=== PATIENT | female | born 1980 | race Caucasian/White ===

== ENCOUNTER 2020-01-02 13:27 | Emergency (ER) | payer OTHER, SELFPAY ==
--- NOTE | ~2020-01-02 | XR_ITS ---
EXAMINATION: XR elbow LT min 3V EXAM DATE: 01/02/2020 13:55 INDICATION: No known recent injury provided at this time. Pain of the left elbow. TECHNIQUE: Left elbow frontal, lateral with flexion, and oblique projections obtained and reviewed. There is no prior study for comparison. FINDINGS: Left elbow anterior humeral line intact. There are no acute fractures or dislocations yissel ntified. There is no subcutaneous gas. The soft tissue is unremarkable. There are no radiopaque f oreign bodies. Joint space is maintained. IMPRESSION: 1. Unremarkable XR elbow LT min 3V exam. Reviewed, dictated and finalized at location A. [employer]
[2020-01-02 13:30] VITALS: BP 155/91; PULSE 71; RESP 16; TEMP 36.9; O2SAT 100
--- NOTE | 2020-01-02 15:18 | ED.UPPEXIN ---
HPI - Extremity Injury (Upper) General Chief Complaint: Extremity Injury, Upper Stated Complaint: left elbow feels hot Time Seen by Provider: 01/02/20 14:43 Source: patient Mode of arrival: ambulatory Limitations: no limitations History of Present Illness HPI narrative: Patient presents with chief complaint of pain with occasional radiation to the fingers from the left elbow that began after patient was throwing a pallet into a dumpster prior to arrival at work. 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 Patient denies any other injuries or prior fractures. Patient states that the pain has persisted in the left elbow. Related Data Allergies Allergy/AdvReac Type Severity Reaction Status Date / Time No Known Allergies Allergy Verified 01/02/20 13:34 Review of Systems Review of Systems: Narrative: CONSTITUTIONAL: Denies fever, chills, or sweats. EYES: Denies visual changes, redness, or discharge. ENT: Denies rhinorrhea, congestion, sore throat, or otalgia. CARDIOVASCULAR: Denies chest pain, palpitations, or edema. RESPIRATORY: Denies cough or dyspnea. GASTROINTESTINAL: Denies abdominal pain, nausea, vomiting, or diarrhea. GENITOURINARY: Denies dysuria or hematuria. SKIN: Denies rash or itching. MUSCULOSKELETAL: Reports elbow pain denies back pain, or myalgia. NEUROLOGIC: Reports intermittent hand tingling denies headache, dizziness, or weakness. PSYCHIATRIC: Denies anxiety or depression. PMFSH Social History Social History Gender identity (if verbalized by the patient): Female Exam Narrative: Exam Narrative: GENERAL: Well-appearing, well-nourished, and in no acute distress. HEAD: Normocephalic, atraumatic. EYES: PERRLA and EOMI. ENT: Nares clear, no rhinorrhea or epistaxis. Mucous membranes moist. Oropharynx without tonsillar hypertrophy exudate or other lesions. Bilateral TMs pearly garrett nonbulging NECK: Supple. No adenopathy or masses. No carotid bruits or JVD CHEST: Clear to auscultation. No respiratory distress. No wheezes rales or rhonchi HEART: Regular rate and rhythm. No murmur heard. Normal peripheral pulses. EXTREMITIES: Tenderness with palpation of the left elbow ulnar groove. Exchange Teller strength, sensation are normal in bilateral arms. Normal range of motion. No edema. No erythema, ecchymosis or signs of swelling. Tinel's negative SKIN: Warm, dry, no rash. NEURO: No focal deficits. Alert and oriented x3. PSYCH: Normal mood and affect. Course Vital Signs Vital signs: Vital Signs Temperature 98.4 F 01/02/20 13:30 Pulse Rate 71 01/02/20 13:30 Respiratory Rate 16 01/02/20 13:30 Blood Pressure 155/91 H 01/02/20 13:30 Pulse Oximetry 100 01/02/20 13:30 Temperature 98.4 F 01/02/20 13:30 Pulse Rate 71 01/02/20 13:30 Respiratory Rate 16 01/02/20 13:30 Blood Pressure 155/91 H 01/02/20 13:30 Pulse Oximetry 100 01/02/20 13:30 MDM - Extremity Injury (Upper) MDM Narrative Medical decision making narrative: Discussed with patient ulnar nerve irritation and plans for anti-inflammatory medication and avoiding overuse. Patient asked questions on whether or not her symptoms could be linked to stroke or carpal tunnel. Patient is not showing any signs of stroke-speech issues, neurological deficits, Unilateral changes. Patient also have a negative Tinel's test and the distribution of tingling to the fingers pointing to the ulnar nerve irritation. Patient given discharge instructions and instructed to follow with her primary care for further evaluation symptoms persist. Patient informed that if symptoms persist she may require MRI or nerve conduction studies. Patient instructed to return to emergency department if she has any worsening or emergent symptoms. Patient instructed to report her injury to her job so they may be aware if any further
== END 2020-01-02 16:28 | disposition home or self-care (01) ==
PROVIDERS: Emergency Provider Emergency Medicine
DX: S54.02XA Injury of ulnar nerve at forearm level, left arm, initial encounter (principal); X50.9XXA Other and unspecified overexertion or strenuous movements or postures, initial encounter
CPT/HCPCS: 73080; 99283

== ENCOUNTER 2022-05-17 18:15 | Emergency (ER) | payer OTHER, SELFPAY ==
--- NOTE | ~2022-05-17 | XR_ITS ---
EXAMINATION: XR chest 2V Exam Date/Time: 05/17/2022 18:45 CDT HISTORY: cough, diminished lung sounds HX covid 1 yr ago Comparison: None available. RESULT: Lines, tubes, and devices: None. Lungs and pleura: Clear. Cardiomediastinal silhouette: Normal cardiomediastinal silhouette. Other: No acute osseous or upper abdominal finding. IMPRESSION: No acute cardiopulmonary process. Reviewed, dictated and finalized at location K.
[2022-05-17 18:22] VITALS: BP 148/81; PULSE 79; RESP 16; TEMP 37.1; O2SAT 99
--- NOTE | 2022-05-17 18:26 | ED.URI ---
HPI - URI/Sore Throat General Chief Complaint: Upper Respiratory Infection Stated Complaint: Chest Congestion/Cough Time Seen by Provider: 05/17/22 18:20 Source: patient and RN notes reviewed History of Present Illness HPI Narrative: Patient is a 42-year-old female who presents the urgent care with complaints of persistent cough, chest congestion and intermittent chest discomfort with cough. Patient states that it all seems to be raspy. Also reports of a runny nose. Patient states that her doctor would not see her and stated that she needed to go to the emergency room. Patient states that she did go to the emergency room in February and they did not do anything for her and attributed her symptoms to anxiety. Patient states she has had a lot of stress and anxiety since COVID after her mother from the same COVID diagnosis. Patient states that she is now taking care of her cousin who has MR. Patient denies of any fevers, nausea, vomiting, new exposures to illness. No other complaints. No acute distress noted. Patient aware of the plan of care. Some parts of this dictation were generated by voice recognition software and may contain typographical and/or grammatical inaccuracies. Related Data Home Medications Medication Instructions Recorded Confirmed travoprost 0.004 % eye drops 1 drp EACH EYE DAILY 05/17/22 05/17/22 Allergies Allergy/AdvReac Type Severity Reaction Status Date / Time No Known Allergies Allergy Verified 05/17/22 18:44 Review of Systems Review of Systems: CONSTITUTIONAL: Denies fever, chills, or sweats. EYES: Denies visual changes, redness, or discharge. ENT: Denies rhinorrhea, congestion, sore throat, or otalgia. CARDIOVASCULAR: Denies chest pain, palpitations, or edema. RESPIRATORY: Reports of persistent cough with intermittent dyspnea and chest discomfort GASTROINTESTINAL: Denies abdominal pain, nausea, vomiting, or diarrhea. GENITOURINARY: Denies dysuria or hematuria. SKIN: Denies rash or itching. MUSCULOSKELETAL: Denies back pain, joint pain, or myalgia. NEUROLOGIC: Denies headache, numbness, or weakness. All other systems reviewed are negative, except as documented in HPI. [facility] Social History Social History (System 05/22/20 @ 12:07 by Misty Hennessy) Gender identity (if verbalized by the patient): Female Comments At the time of my signature, I reviewed and agree with the nursing past medical, surgical, social, and family history. There is no relevant family history pertinent to the patient complaint. Exam Narrative: GENERAL: This is a well-nourished, well-developed patient, in no apparent distress. HEAD: normocephalic, atraumatic. EYES: PERRL. Sclera clear/white. Vision is grossly intact. EARS: External ears normal, auditory canals clear and without drainage, TMs normal without perforation. Hearing grossly intact. NOSE: External nose normal with no obvious nasal discharge, nares without redness, no rhinorrhea. THROAT: Mucous membranes moist, posterior pharynx clear. Mild postnasal drainage NECK: Neck supple, non-tender without lymphadenopathy, masses or thyromegaly. CARDIOVASCULAR: Regular rate and rhythm without murmurs, gallops, or rubs. RESPIRATORY: Diminished throughout with the exception of the left upper lobe. No crackles or wheezes SKIN: warm, intact with no suspicious lesions or rash, good texture and turgor. NEURO: awake, alert, and oriented to person, place and time. There were no obvious focal neurologic abnormalities. EXTREMITIES: No clubbing, cyanosis, or edema. Course Course Level of Care: Express Care Visit Vital Signs Vital signs: Vital Signs Temperature 98.7 F 05/17/22 18:22 Pulse Rate 79 05/17/22 18:22 Respiratory Rate 16 05/17/22 18:22 Blood Pressure 148/81 H 05/17/22 18:22 Pulse Oximetry 99 05/17/22 18:22 Oxygen Delivery Room Air 05/17/22 18:22 Temperature 98.7 F 05/17/22 18:22 Pulse Rate 79 05/17/22 18:22 Respiratory Rat
== END 2022-05-17 19:20 | disposition home or self-care (01) ==
PROVIDERS: Emergency Provider Nurse Practitioner Family
DX: R05.9 Cough, unspecified (principal); Z86.16 Personal history of COVID-19
CPT/HCPCS: 71046; 99213; G0463

== ENCOUNTER 2022-05-31 09:12 | Outpatient (CLI) | payer OTHER, SELFPAY ==
--- NOTE | ~2022-05-31 | XR_ITS ---
XR ribs BI 3V w CXR 2V DATE: 05/31/2022 09:43 INDICATION: Generalized chest pain. No known injury. TECHNIQUE: PA and lateral chest. 3 views of right ribs. 3 views of left ribs. COMPARISON: 05/17/2022 2 view chest FINDINGS: Normal heart size. No hilar or mediastinal enlargement. No pulmonary infiltrate or consolid ation, pleural effusion or pulmonary vascular congestion or pneumothorax. The lateral old healed clavicular fracture deformities. No rib fracture or bone destruction is detect ed. IMPRESSION: No evidence of rib fracture No active cardiopulmonary disease Old healed clavicle fractures Reviewed, dictated and finalized at location A.
[2022-05-31 19:38] LABS: Hematocrit 48.3 % (37.0-47.0); Hemoglobin 16.3 g/dL (12.0-15.0); Mean Corpuscular HGB Conc 33.7 g/dl (32-36); Mean Corpuscular Hemoglobin 32.3 pg (26-34); Mean Corpuscular Volume 95.8 fl (80-100); Mean Platelet Volume 9.3 fl (7.4-10.4); Platelet Count Result 247 k/mm3 (150-375); Red Blood Count 5.04 M/mm3 (4.2-5.4); Red Cell Distribution Width 13.7 % (11.5-14.5); White Blood Count 10.6 K/mm3 (4.5-10.0)
[2022-05-31 19:47] LABS: Alanine Aminotransferase 31 U/L (6-35); Albumin Level 4.4 g/dL (3.5-5.1); Alkaline Phosphatase 76 U/L (38-126); Anion Gap 3 mmol/L (8-16); Aspartate Amino Transferase 24 U/L (14-36); Bilirubin,Total 0.3 mg/dL (0.2-1.3); Blood Urea Nitrogen 17 mg/dL (7-17); Calcium 9.4 mg/dL (8.4-10.2); Carbon Dioxide 28 mmol/L (22-30); Chloride 105 mmol/L (98-107); Cholesterol 224 mg/dL (0-200); Estimated Glomerular Filt Rate > 60; Glucose 96 mg/dL (65-110); HDL Direct 49 mg/dL; Potassium 4.6 mmol/L (3.4-5.0); Sodium 136 mmol/L (137-145); Triglycerides 171 mg/dL (<150)
[2022-05-31 19:57] LABS: LDL Cholesterol Direct 125 mg/dL
== END 2022-05-31 09:13 | disposition home or self-care (01) ==
PROVIDERS: PCP Family Medicine; Visit Provider Family Medicine
DX: Z00.00 Encounter for general adult medical examination without abnormal findings (principal); R07.9 Chest pain, unspecified
CPT/HCPCS: 36415; 71046; 71110; 80053; 80061; 85027

== ENCOUNTER 2022-06-08 14:05 | Outpatient (CLI) | payer OTHER, SELFPAY ==
[2022-06-08 17:53] LABS: Basophils Percent Auto 0.3 % (0.2-1.2); Eosinophils Absolute Auto 0.2 K/mm3 (0-0.3); Eosinophils Percent Auto 2.1 % (0-4.4); Hematocrit 44.2 % (37.0-47.0); Hemoglobin 15.4 g/dL (12.0-15.0); Immature Granulocyte Absolute 0.02 K/mm3 (0.00-0.031); Immature Granulocyte Percent A 0.2 % (0-0.5); Lymphocytes Absolute Auto 2.58 K/mm3 (0.9-3.2); Lymphocytes Percent Auto 26.1 % (18.3-44.2); Mean Corpuscular HGB Conc 34.8 g/dl (32-36); Mean Corpuscular Volume 91.9 fl (80-100); Mean Platelet Volume 9.2 fl (7.4-10.4); Monocytes Absolute Auto 0.6 K/mm3 (0.1-0.6); Monocytes Percent Auto 6.2 % (2.6-8.5); Neutrophils Absolute Auto 6.4 K/mm3 (1.3-6.7); Neutrophils Percent Auto 65.1 % (45.5-73.1); Platelet Count Result 276 k/mm3 (150-375); Red Blood Count 4.81 M/mm3 (4.2-5.4); White Blood Count 9.9 K/mm3 (4.5-10.0)
[2022-06-08 18:08] LABS: Appearance Urine Clear (Clear); Bilirubin Urine Negative (Negative); Color Urine Yellow (Yellow); Glucose Urine UA Negative (Negative); Ketones Urine 2+ mg/dL (Negative); Leukocyte Esterase Ur Negative LEU/UL (NEGATIVE); Nitrate Urine Negative (Negative); Protein Urine Negative (Negative); Specific Grav Ur >= 1.030 (1.001-1.035); Urobilinogen Urine 0.2 mg/dL (<2.0); pH Urine 5.5 (5.0-9.0)
[2022-06-08 18:14] LABS: Bacteria Urine Trace /hpf; Mucus Urine Rare /lpf; Squamous Epithelial Cell Urine Few /hpf (Few); WBC Urine 0-3 /hpf (0-3)
[2022-06-08 18:19] LABS: Add Urine Microscopic? YES; Blood Urine Trace-Intact (Negative)
[2022-06-13 19:44] LABS: Erythropoietin (EPO) 7.9 mIU/mL (2.6-18.5)
== END 2022-06-08 14:06 | disposition home or self-care (01) ==
PROVIDERS: PCP Family Medicine; Visit Provider Family Medicine
DX: D75.1 Secondary polycythemia (principal); D72.829 Elevated white blood cell count, unspecified
CPT/HCPCS: 36415; 81001; 82668; 85025

== ENCOUNTER 2022-07-13 13:28 | Outpatient (CLI) | payer OTHER, SELFPAY ==
--- NOTE | 2022-07-13 13:42 | ECHO_ITS ---
Patient Info Name: Melissa De La Torre Age: 42 years : 1980 Gender: Female Ht: 67 in Wt: 260 lbs BSA: 2.42 m2 HR: 61 bpm BP: 140 / 90 mmHg Heart Rhythm: Sinus Rhythm Technical Quality: Fair Exam Date: 07/13/2022 2:23 PM Exam Location: [facility] Pulmonary Patient Status: Outpatient Admit Date: 07/13/2022 Staff Ordering Physician: Tian Joshi MD Nurse Reviewer: Elly Eden RDCS Attending Provider: Tian Joshi MD Referring Physician: Adi MARQUES; Exam Type: CA echo doppler color flow Study Info Indications - chest pain Complete two-dimensional, color flow and Doppler transthoracic echocardiogram is performed. Summary 1. Complete two-dimensional, color flow and Doppler transthoracic echocardiogram is performed. 2. Left ventricular chamber dimension is normal. 3. Left ventricular systolic function is normal, estimated at 60-65%. 4. The left ventricular diastolic function is normal. 5. E/e' 8 is minimally elevated. 6. No pulmonary hypertension, estimated pulmonary arterial systolic pressure is 26 mmHg. Left Ventricle E/e' 8 is minimally elevated. Left ventricular chamber dimension is normal. Left ventricular systolic function is normal, estimated at 60-65%. The left ventricular diastolic function is normal. Right Ventricle Right ventricular chamber dimension is normal. Right ventricular systolic function is normal. Left Atria Left atrial chamber dimension is normal. Right Atria Right atrial chamber dimension is normal. Aortic Valve The aortic valve is trileaflet. There is no aortic valve stenosis. There is no aortic valve regurgitation. Pulmonic Valve There is no pulmonic regurgitation. Mitral Valve There is no mitral valve stenosis. There is no mitral valve regurgitation. Tricuspid Valve There is no tricuspid valve regurgitation. No pulmonary hypertension, estimated pulmonary arterial systolic pressure is 26 mmHg. Pericardium/Pleural There is no pericardial effusion. Inferior Vena Cava Normal inferior vena cava with >50% collapse upon inspiration consistent with normal right atrial pressure, 5 mmHg. Aorta The aortic root size at the sinus of Valsalva is normal. Left Ventricular Outflow Tract Name Value Normal LVOT 2D LVOT Diameter 2.0 cm LVOT Doppler LVOT Peak Gradient 5 mmHg LVOT Mean Gradient 3 mmHg LVOT VTI 25 cm LVOT VTI/AV VTI Ratio 0.9 LVOT Stroke Volume 82 ml LVOT CO 15.5 l/min LVOT CI 6.4 l/min/m2 Pulmonic Valve Name Value Normal PV Doppler PV Peak Gradient 5 mmHg Mitral Valve
== END 2022-07-13 13:29 | disposition home or self-care (01) ==
LOC: ANHCARD 13:30
PROVIDERS: PCP Family Medicine; Visit Provider Family Medicine
DX: R07.9 Chest pain, unspecified (principal); Z00.00 Encounter for general adult medical examination without abnormal findings
CPT/HCPCS: 93306

== ENCOUNTER 2022-08-05 09:12 | Outpatient (CLI) | payer OTHER, SELFPAY ==
--- NOTE | 2022-08-05 09:17 | EST_ITS ---
Patient Info Name: Melissa Rojas Age: 42 years : 1980 Gender: Female Ht: 67 in Wt: 265 lbs BSA: 2.44 m2 Exam Date: 08/05/2022 10:25 AM Exam Location: [facility] Stress Patient Status: Outpatient Admit Date: 08/05/2022 Staff Ordering Physician: Ramone Mora DO Attending Provider: Ramone Mora DO Exercise Technologist: Corinne High RDCS Exercise Physician: Ramone Mora DO Exam Type: CA stress test treadmill Study Info Indications R07.9 - Chest pain, unspecified A treadmill exercise stress test was performed. Summary 1. 1. Negative Zac exercise stress test for ischemic ST changes by ECG criteria. 2. 2. Good functional capacity, achieving 10 METs of workload. 3. 3. Appropriate HR response to exercise. 4. 4. Appropriate HR recovery at 1 minute post exercise. 5. 5. No imaging with stress testing. 6. 6. Patient informed of the above results. Protocol: Zac Stress ECG Details Stage: REST Duration (min): 6 min : 41 sec Speed (mph): 0.0 Grade (%): 0 HR (bpm): 57 SBP (mmHg): 136 DBP (mmHg): 77 METS: --- Stage: REST Duration (min): 11 min : 18 sec Speed (mph): 0.0 Grade (%): 0 HR (bpm): 63 SBP (mmHg): 136 DBP (mmHg): 77 METS: --- Stage: STAGE 1 Duration (min): 1 min : 0 sec Speed (mph): 1.7 Grade (%): 10 HR (bpm): 87 SBP (mmHg): 136 DBP (mmHg): 77 METS: --- Stage: STAGE 1 Duration (min): 2 min : 0 sec Speed (mph): 1.7 Grade (%): 10 HR (bpm): 93 SBP (mmHg): 136 DBP (mmHg): 77 METS: --- Stage: STAGE 1 Duration (min): 3 min : 0 sec Speed (mph): 1.7 Grade (%): 10 HR (bpm): 102 SBP (mmHg): 174 DBP (mmHg): 77 METS: --- Stage: STAGE 2 Duration (min): 1 min : 0 sec Speed (mph): 2.5 Grade (%): 12 HR (bpm): 111 SBP (mmHg): 174 DBP (mmHg): 77 METS: --- Stage: STAGE 2 Duration (min): 2 min : 0 sec Speed (mph): 2.5 Grade (%): 12 HR (bpm): 122 SBP (mmHg): 186 DBP (mmHg): 77 METS: --- Stage: STAGE 2 Duration (min): 3 min : 0 sec Speed (mph): 2.5 Grade (%): 12 HR (bpm): 125 SBP (mmHg): 186 DBP (mmHg): 77 METS: --- Stage: STAGE 3 Duration (min): 1 min : 0 sec Speed (mph): 3.4 Grade (%): 14 HR (bpm): 138 SBP (mmHg): 193 DBP (mmHg): 92 METS: --- Stage: STAGE 3 Duration (min): 2 min : 0 sec Speed (mph): 3.4 Grade (%): 14 HR (bpm): 147 SBP (mmHg): 193 DBP (mmHg): 92 METS: --- Stage: STAGE 3 Duration (min): 2 min : 18 sec Speed (mph): 3.4 Grade (%): 14 HR (bpm): 151 SBP (mmHg): 193 DBP (mmHg): 92 METS: --- Stage: RECOVERY Duration (min): 0 min : 42 sec Speed (mph): 0.0 Grade (%): 0 HR (bpm): 137 SBP (mmHg): 173 DBP (mmHg): 83 METS: --- Stage: RECOVERY Duration (min): 1 min : 42 sec Speed (mp
== END 2022-08-05 09:13 | disposition home or self-care (01) ==
LOC: ANHCARD 09:16
PROVIDERS: PCP Family Medicine; Visit Provider Internal Medicine Cardiovascular Disease
DX: R07.9 Chest pain, unspecified (principal)
CPT/HCPCS: 93017

== ENCOUNTER 2023-06-01 12:17 | Outpatient (CLI) | payer OTHER, SELFPAY ==
[2023-06-01 19:28] LABS: Cholesterol 185 mg/dL (0-200); HDL Direct 39 mg/dL; Triglycerides 113 mg/dL (<150)
[2023-06-01 19:32] LABS: Alanine Aminotransferase 18 U/L (6-35); Alkaline Phosphatase 50 U/L (38-126); Anion Gap 7 mmol/L (8-16); Aspartate Amino Transferase 45 U/L (14-36); Bilirubin,Total 0.7 mg/dL (0.2-1.3); Blood Urea Nitrogen 8 mg/dL (7-17); Calcium 9.2 mg/dL (8.4-10.2); Carbon Dioxide 28 mmol/L (22-30); Chloride 102 mmol/L (98-107); Estimated Glomerular Filt Rate > 60; Glucose 75 mg/dL (65-110); Potassium 4.3 mmol/L (3.4-5.0); Sodium 137 mmol/L (137-145)
[2023-06-01 19:39] LABS: LDL Cholesterol Direct 105 mg/dL
[2023-06-01 19:41] LABS: Hematocrit 45.5 % (37.0-47.0); Hemoglobin 15.3 g/dL (12.0-15.0); Mean Corpuscular HGB Conc 33.6 g/dl (32-36); Mean Corpuscular Hemoglobin 31.7 pg (26-34); Mean Corpuscular Volume 94.4 fl (80-100); Mean Platelet Volume 9.3 fl (7.4-10.4); Platelet Count Result 276 k/mm3 (150-375); Red Blood Count 4.82 M/mm3 (4.2-5.4); Red Cell Distribution Width 12.9 % (11.5-14.5); White Blood Count 8.1 K/mm3 (4.5-10.0)
== END 2023-06-01 12:18 | disposition home or self-care (01) ==
LOC: ANHBWCLAB 12:21
PROVIDERS: Internal Medicine Cardiovascular Disease; PCP Family Medicine; Visit Provider Nurse Practitioner Adult Health
DX: E78.5 Hyperlipidemia, unspecified (principal); D75.1 Secondary polycythemia
CPT/HCPCS: 36415; 80053; 80061; 85027

== ENCOUNTER 2023-10-24 12:10 | Outpatient (CLI) | payer OTHER, SELFPAY ==
--- NOTE | ~2023-10-24 | XR_ITS ---
Lumbosacral Spine: AP and lateral views Clinical History: Pain Findings: The normal lordotic curve is maintained. The vertebral bodies and posterior elements are i ntact. The intervertebral disc spaces are preserved. The sacroiliac joints are normally outlined. Impression: No significant abnormality. Reviewed, dictated and finalized at [facility]. 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
== END 2023-10-24 12:11 | disposition home or self-care (01) ==
PROVIDERS: PCP Nurse Practitioner Adult Health; Visit Provider Nurse Practitioner Adult Health
DX: M54.9 Dorsalgia, unspecified (principal)
CPT/HCPCS: 72100

== ENCOUNTER 2024-02-28 15:56 | Outpatient (CLI) | payer OTHER, SELFPAY ==
--- NOTE | ~2024-02-28 | MM_ITS ---
EXAMINATION: MM screening stef BI w kelly HISTORY: Screening TECHNIQUE: Craniocaudal and mediolateral oblique 3-D tomosynthesis images were obtained and synthetic 2-D images were generated. CAD analysis was submitted and interpreted. COMPARISON: No prior mammogram is available for comparison at this institution. BREAST PARENCHYMAL COMPOSITION: Not dense: There are scattered areas of fibroglandular density. FINDINGS: There is no evidence of suspicious mass, calcification, or architectural distortion to sugg est malignancy in either breast. There has been no suspicious interval change. IMPRESSION: 1. No mammographic evidence of malignancy. 2. Recommend routine screening mammography in one year. BI-RADS Category 1: Negative Reviewed, dictated and finalized at location A.
== END 2024-02-28 15:57 ==
LOC: MICIMG 15:56
PROVIDERS: PCP Nurse Practitioner Adult Health; Visit Provider Nurse Practitioner Adult Health
DX: Z12.31 Encounter for screening mammogram for malignant neoplasm of breast (principal)
CPT/HCPCS: 77063; 77067

== ENCOUNTER 2024-05-14 09:49 | Outpatient (CLI) | payer OTHER, SELFPAY ==
--- NOTE | ~2024-05-14 | US_ITS ---
COMPLETE ABDOMINAL ULTRASOUND Ordering provider: Brittney Rodriguez APRN History: . R10.11 - Right upper quadrant pain . Comparison: None. FINDINGS: LIVER: Normal size and echotexture. The liver measures 15.6 cm. No focal hepatic lesions or perihepat ic fluid collections are identified. Normal portal vein flow. GALLBLADDER: Multiple stones. No pericholecystic fluid collections. The gallbladder wall thickening v ersus 0.37 cm. A negative sonographic Sexton's sign was noted. BILIARY DUCTS: No evidence for intra or extrahepatic biliary dilation. Common bile duct measures 4 mm in diameter which is within normal limits. PANCREAS: Partially seen with no definite abnormality. IMPRESSION: 1. Cholelithiasis with no definite cholecystitis. Reviewed, dictated and finalized at location A.
== END 2024-05-14 09:50 ==
LOC: GOSHIMG 09:50
PROVIDERS: PCP Nurse Practitioner Adult Health; Visit Provider Nurse Practitioner Adult Health
DX: K80.20 Calculus of gallbladder without cholecystitis without obstruction (principal)
CPT/HCPCS: 76705

== ENCOUNTER 2024-05-15 03:10 | Emergency (ER) | payer OTHER, SELFPAY ==
[2024-05-15] VITALS (8 sets, daily range): BP systolic 122–147; BP diastolic 76–85; PULSE 59–68; RESP 17–19; TEMP 36.6; O2SAT 96–100
[2024-05-15 03:41] LABS: Basophils Percent Auto 0.3 % (0.2-1.2); Eosinophils Absolute Auto 0.2 K/mm3 (0-0.3); Eosinophils Percent Auto 2.6 % (0-4.4); Hematocrit 46.8 % (37.0-47.0); Hemoglobin 16.3 g/dL (12.0-15.0); Immature Granulocyte Absolute 0.02 K/mm3 (0.00-0.031); Immature Granulocyte Percent A 0.2 % (0-0.5); Lymphocytes Percent Auto 31.8 % (18.3-44.2); Mean Corpuscular HGB Conc 34.8 g/dl (32-36); Mean Corpuscular Hemoglobin 32.8 pg (26-34); Mean Corpuscular Volume 94.2 fl (80-100); Mean Platelet Volume 8.9 fl (7.4-10.4); Monocytes Absolute Auto 0.6 K/mm3 (0.1-0.6); Monocytes Percent Auto 6.3 % (2.6-8.5); Neutrophils Absolute Auto 5.4 K/mm3 (1.3-6.7); Neutrophils Percent Auto 58.8 % (45.5-73.1); Platelet Count Result 217 k/mm3 (150-375); Red Blood Count 4.97 M/mm3 (4.2-5.4); Red Cell Distribution Width 13.2 % (11.5-14.5); White Blood Count 9.1 K/mm3 (4.5-10.0)
[2024-05-15] MEDS: SODIUM CHLORIDE 0.9% IV 1,000 ML 999 ML IV CONT (03:42)
[2024-05-15] MEDS: KETOROLAC 15 MG/ML VIAL (*BKC) IV PUSH (03:43)
[2024-05-15] MEDS: ONDANSETRON INJ 4 MG/2 ML VIAL IV PUSH (03:43)
[2024-05-15] MEDS: MORPHINE SULFATE (*CRX) 4 MG/ML INJ IV PUSH (03:43)
[2024-05-15 03:44] LABS: Appearance Urine Cloudy (Clear); Bacteria Urine 3+ /hpf; Bilirubin Urine Negative (Negative); Blood Urine Negative (Negative); Color Urine Yellow (Yellow); Glucose Urine UA Negative (Negative); Ketones Urine Negative (Negative); Leukocyte Esterase Ur 1+ LEU/UL (Negative); Nitrate Urine Negative (Negative); Non Pathogenic Casts 0-2; Protein Urine Negative (Negative); RBC Urine 0-2 /hpf (0-2); Squamous Epithelial Cell Urine Moderate /hpf (Few); Urobilinogen Urine 0.2 mg/dL (<2.0); pH Urine 5.5 (5.0-9.0)
[2024-05-15 03:47] LABS: Add Urine Microscopic? YES
[2024-05-15 03:52] LABS: Alanine Aminotransferase 17 U/L (6-35); Albumin Level 4.3 g/dL (3.5-5.1); Alkaline Phosphatase 50 U/L (38-126); Anion Gap 8 mmol/L (4-12); Aspartate Amino Transferase 21 U/L (14-36); Bilirubin,Total 0.4 mg/dL (0.2-1.3); Blood Urea Nitrogen 21 mg/dL (7-17); Calcium 9.3 mg/dL (8.4-10.2); Carbon Dioxide 25 mmol/L (22-30); Chloride 106 mmol/L (98-107); Estimated CRCL calculation 93 ml/min; Estimated Glomerular Filt Rate > 60; Glucose 103 mg/dL (65-110); Lipase 120 U/L (23-300); Potassium 4.3 mmol/L (3.4-5.0); Sodium 139 mmol/L (137-145)
--- NOTE | 2024-05-15 04:00 | ED.GENADULT ---
HPI - General Adult General Chief complaint: Abdominal Pain Stated complaint: abd pain Time Seen by Provider: 05/15/24 03:37 History of Present Illness HPI narrative: patient for 4-year-old female who presents emergency department with chief complaint of abdominal pain. The patient reports that she was seen in the [facility] had a CT scan that showed possible acute cholecystitis patient was discharged after feeling better and had an outpatient ultrasound that confirmed cholelithiasis without evidence of cholecystitis. The patient reports that she has attempted to eat a low-fat diet although did eat some peanut butter patient reports that she started having severe pain in the right upper quadrant radiates to her back patient reports nausea patient denies fever Related Data Home Medications Medication Instructions Recorded Confirmed travoprost 0.004 % eye drops 1 drp EACH EYE DAILY 05/17/22 10/24/23 Allergies Allergy/AdvReac Type Severity Reaction Status Date / Time No Known Allergies Allergy Verified 10/24/23 11:51 Review of Systems Review of Systems: A 10 system review of systems was completed on the patient and is negative except for what is stated in the HPI. Nursing and ancillary documentation was reviewed. [facility] Family History Family History Father Heart disease Mother Heart disease Depression Diabetes mellitus Sibling Depression Cerebrovascular accident Disorder of thyroid Social History Social History Years smoked: 25 Smoking status: Former smoker Tobacco type: cigarettes Alcohol intake: current Alcohol use details: once or twice or month wine or a mixed drink Substance use: never Substance use type: does not use Lack of Transportation: No Lack of Food: Never True Current Housing: I Have Housing Concerned About Future Housing: No Difficulty Paying Gas/Electric Bills: No Difficulty Paying for Meds: No Currently Unemployed: No Education: Trade/Vocational Certificate Difficulty w/ Childcare or Family Care: No Living arrangements: with family Occupation/Education: occupation 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 HEAD: Normocephalic, atraumatic. EYES: PERRLA and EOMI. ENT: Nares clear, no rhinorrhea or epistaxis. Mucous membranes moist. NECK: Supple. CHEST: Clear to auscultation. No respiratory distress. HEART: Regular rate and rhythm. No murmur heard. Normal peripheral pulses. ABDOMEN: Soft, tenderness to palpation the right upper quadrant, nondistended, normal active bowel sounds. EXTREMITIES: Normal range of motion. No edema. SKIN: Warm, dry, no rash. NEURO: No focal deficits. Alert and oriented x3. PSYCH: Normal mood and affect. Course Vital Signs Vital signs: Vital Signs Temperature 36.6 C 05/15/24 03:16 Pulse Rate 66 05/15/24 03:16 Respiratory Rate 17 05/15/24 03:16 Blood Pressure 147/85 H 05/15/24 03:16 Pulse Oximetry 100 05/15/24 03:16 Oxygen Delivery Room Air 05/15/24 03:16 Temperature 36.6 C 05/15/24 03:16 Pulse Rate 66 05/15/24 03:16 Respiratory Rate 17 05/15/24 03:16 Blood Pressure 147/85 H 05/15/24 03:16 Pulse Oximetry 100 05/15/24 03:16 Oxygen Delivery Room Air 05/15/24 03:16 Medical Decision Making MDM Narrative Medical decision making narrative: Differential diagnosis includes biliary colic, cholecystitis, choledocholithiasis, pancreatitis laboratory studies were obtained showed white count 9.1 liver enzymes were within normal limits urinalysis showed no evidence UTI lipase was 120 patient's pain was controlled in the emergency
== END 2024-05-15 05:30 | disposition home or self-care (01) ==
PROVIDERS: Emergency Provider Emergency Medicine; PCP Nurse Practitioner Adult Health
DX: K80.50 Calculus of bile duct without cholangitis or cholecystitis without obstruction (principal); Z87.891 Personal history of nicotine dependence
CPT/HCPCS: 36415; 80053; 81001; 81025; 83690; 85025; 87086; 87088; 96361; 96374; 96375; 99284; J1885; J2270; J2405; J7030

== ENCOUNTER 2024-05-18 02:10 | Observation (INO) | payer OTHER, SELFPAY ==
[2024-05-18] VITALS (34 sets, daily range): BP systolic 98–142; BP diastolic 43–98; PULSE 62–99; RESP 11–20; TEMP 36.3–37.1; O2SAT 93–100; BMI 36.5
[2024-05-18] MEDS: MORPHINE SULFATE (*CRX) 4 MG/ML INJ IV PUSH (02:35)
[2024-05-18] MEDS: ONDANSETRON INJ 4 MG/2 ML VIAL IV PUSH ×2 (02:35→02:55)
[2024-05-18] MEDS: SODIUM CHLORIDE 0.9% IV 1,000 ML 999 ML IV CONT (02:36)
[2024-05-18 02:46] LABS: Basophils Percent Auto 0.3 % (0.2-1.2); Eosinophils Absolute Auto 0.3 K/mm3 (0-0.3); Eosinophils Percent Auto 2.5 % (0-4.4); Hematocrit 43.9 % (37.0-47.0); Hemoglobin 15.1 g/dL (12.0-15.0); Immature Granulocyte Absolute 0.04 K/mm3 (0.00-0.031); Immature Granulocyte Percent A 0.3 % (0-0.5); Lymphocytes Absolute Auto 3.18 K/mm3 (0.9-3.2); Lymphocytes Percent Auto 27.8 % (18.3-44.2); Mean Corpuscular HGB Conc 34.4 g/dl (32-36); Mean Corpuscular Hemoglobin 32.1 pg (26-34); Mean Corpuscular Volume 93.2 fl (80-100); Mean Platelet Volume 8.8 fl (7.4-10.4); Monocytes Absolute Auto 0.9 K/mm3 (0.1-0.6); Monocytes Percent Auto 7.4 % (2.6-8.5); Neutrophils Percent Auto 61.7 % (45.5-73.1); Platelet Count Result 246 k/mm3 (150-375); Red Blood Count 4.71 M/mm3 (4.2-5.4); Red Cell Distribution Width 13.2 % (11.5-14.5); White Blood Count 11.4 K/mm3 (4.5-10.0)
[2024-05-18 02:54] LABS: Appearance Urine Clear (Clear); Bacteria Urine 1+ /hpf; Bilirubin Urine Negative (Negative); Blood Urine Negative (Negative); Color Urine Yellow (Yellow); Glucose Urine UA Negative (Negative); Ketones Urine Negative (Negative); Leukocyte Esterase Ur Negative LEU/UL (Negative); Nitrate Urine Negative (Negative); Non Pathogenic Casts 0-2; Protein Urine Trace mg/dL (Negative); RBC Urine 0-2 /hpf (0-2); Squamous Epithelial Cell Urine Occasional /hpf (Few); WBC Urine 0-5 /hpf (0-3); pH Urine 6.5 (5.0-9.0)
[2024-05-18 02:55] LABS: Add Urine Microscopic? YES
[2024-05-18 02:56] LABS: Alanine Aminotransferase 25 U/L (6-35); Albumin Level 4.5 g/dL (3.5-5.1); Alkaline Phosphatase 53 U/L (38-126); Anion Gap 7 mmol/L (4-12); Aspartate Amino Transferase 26 U/L (14-36); Bilirubin,Total 0.6 mg/dL (0.2-1.3); Blood Urea Nitrogen 21 mg/dL (7-17); Carbon Dioxide 27 mmol/L (22-30); Chloride 104 mmol/L (98-107); Estimated CRCL calculation 106 ml/min; Estimated Glomerular Filt Rate > 60; Glucose 103 mg/dL (65-110); Lipase 82 U/L (23-300); Potassium 3.8 mmol/L (3.4-5.0); Sodium 138 mmol/L (137-145)
[2024-05-18] MEDS: HYDROmorphone HCL INJ (*CRX) 1 MG/ML SYR IV PUSH ×3 (02:56→15:18)
--- NOTE | 2024-05-18 03:11 | ED.GENADULT ---
HPI - General Adult General Chief complaint: Abdominal Pain Stated complaint: RUQ pain, n/v Time Seen by Provider: 05/18/24 02:22 History of Present Illness HPI narrative: Patient for 4-year-old female who presents emergency department with chief complaint of right upper quadrant pain. The patient has been seen in the [place] emergency department had a CT scan showed cholelithiasis and possible cholecystitis had an outpatient ultrasound that showed cholelithiasis and was seen in the emergency department several days ago here for abdominal pain and was controlled on her pain and was to follow-up with surgery a in the office the patient reports that this evening she started having worsening pain Related Data Home Medications Medication Instructions Recorded Confirmed travoprost 0.004 % eye drops 1 drp EACH EYE DAILY 05/17/22 10/24/23 Allergies Allergy/AdvReac Type Severity Reaction Status Date / Time No Known Allergies Allergy Verified 10/24/23 11:51 Review of Systems Review of Systems: A 10 system review of systems was completed on the patient and is negative except for what is stated in the HPI. Nursing and ancillary documentation was reviewed. [facility] Family History Family History Father Heart disease Mother Heart disease Depression Diabetes mellitus Sibling Depression Cerebrovascular accident Disorder of thyroid Social History Social History Years smoked: 25 Smoking status: Former smoker Tobacco type: cigarettes Alcohol intake: current Alcohol use details: once or twice or month wine or a mixed drink Substance use: never Substance use type: does not use Lack of Transportation: No Lack of Food: Never True Current Housing: I Have Housing Concerned About Future Housing: No Difficulty Paying Gas/Electric Bills: No Difficulty Paying for Meds: No Currently Unemployed: No Education: Trade/Vocational Certificate Difficulty w/ Childcare or Family Care: No Living arrangements: with family Occupation/Education: occupation 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 HEAD: Normocephalic, atraumatic. EYES: PERRLA and EOMI. ENT: Nares clear, no rhinorrhea or epistaxis. Mucous membranes moist. NECK: Supple. CHEST: Clear to auscultation. No respiratory distress. HEART: Regular rate and rhythm. No murmur heard. Normal peripheral pulses. ABDOMEN: Soft, tenderness to palpation in the right upper quadrant, nondistended, normal active bowel sounds. EXTREMITIES: Normal range of motion. No edema. SKIN: Warm, dry, no rash. NEURO: No focal deficits. Alert and oriented x3. PSYCH: Normal mood and affect. Course Vital Signs Vital signs: Vital Signs Temperature 36.3 C L 05/18/24 02:13 Pulse Rate 62 05/18/24 02:13 Respiratory Rate 17 05/18/24 02:13 Blood Pressure 142/98 H 05/18/24 02:13 Pulse Oximetry 100 05/18/24 02:13 Oxygen Delivery Room Air 05/18/24 02:13 Temperature 36.3 C L 05/18/24 02:13 Pulse Rate 62 05/18/24 02:13 Respiratory Rate 17 05/18/24 02:13 Blood Pressure 142/98 H 05/18/24 02:13 Pulse Oximetry 100 05/18/24 02:13 Oxygen Delivery Room Air 05/18/24 02:13 Medical Decision Making [facility] Narrative Medical decision making narrative: Differential diagnosis includes cholecystitis, choledocholithiasis Laboratory studies were obtained on the patient showed a white count 11.4 electrolytes showed liver enzymes that were within normal limits bilirubin 0.6 AST and ALT were normal alk-phos was 53. Lipase was normal at 82 urinalysis showed no evidence UTI The patient had imaging fro
[2024-05-18] MEDS: SODIUM CHLORIDE 0.9% IV 1,000 ML 125 ML IV CONT (04:01)
[2024-05-18] MEDS: PIPERACILLN/TAZ 3.375GM/NS50ML 3.375 GM/50 ML BAG IVPB ×4 (04:01→23:00)
--- NOTE | 2024-05-18 04:01 | PC.NURSE ---
no blood cultures needed per erp norah
--- NOTE | 2024-05-18 05:29 | ADMGEN ---
This patient, Melissa Rojas, was admitted to Medical Room 258-01. Patient/family oriented to hospital policies and general routines including ID bracelet, bed and alarms, visiting hours, pain management, procedures, bathroom and other care routines, personal items, smoking policy, room service/diet, and visiting hours. Information on how to activate the Rapid Response Team has been discussed. Patient/Family are encouraged to report perceived risks to care and to ask questions if they do not understand what they are told or what they should do.
[2024-05-18] MEDS: ESCITALOPRAM OXALATE 10 MG TABLET PO (09:32)
--- NOTE | 2024-05-18 09:37 | WPDANESEPPF ---
Anes - Initial Pre Proc Eval Procedure: Operation Date: 05/18/24 10:00 Proposed Procedures p Laparoscopic Cholecystectomy - Dorian Dow MD Date/Time: 05/18/24 09:37 Surgeon: Dorian Dow MD Pre Op Diagnosis: RUQ pain, n/v Patient Data Age: 44 Gender: F Height: 1.7 m Weight: 105.8 kg Last Vital Signs Temp 36.8 C 05/18/24 06:00 Pulse 99 05/18/24 06:00 Resp 18 05/18/24 06:00 BP 103/43 L 05/18/24 06:00 Pulse Ox 97 05/18/24 06:00 O2 Del Method Room Air 05/18/24 08:00 Allergies Allergy/AdvReac Type Severity Reaction Status Date / Time No Known Allergies Allergy Verified 05/18/24 05:35 Home Medications Medication Instructions Recorded Confirmed Type travoprost 0.004 % eye drops 1 drp EACH EYE HS 05/17/22 05/18/24 History cyclobenzaprine 5 mg tablet 5 mg PO BID PRN muscle spasm #30 10/24/23 05/18/24 Rx tabs escitalopram oxalate 10 mg tablet 10 mg PO DAILY #90 tabs 01/17/24 05/18/24 Rx (Lexapro) hydrocodone 5 mg-acetaminophen 325 1 tablet PO Q6H PRN pain 3 days 05/15/24 05/18/24 Rx mg tablet #12 tabs famotidine 40 mg tablet 40 mg PO HS PRN Indigestion 05/18/24 05/18/24 History ketorolac 10 mg tablet 10 mg PO Q6H PRN Pain 05/18/24 05/18/24 History Laboratory Tests 05/18/24 02:23 WBC 11.4 H K/mm3 (4.5-10.0) RBC 4.71 M/mm3 (4.2-5.4) Hgb 15.1 H g/dL (12.0-15.0) Hct 43.9 % (37.0-47.0) MCV 93.2 fl (80-100) MCH 32.1 pg (26-34) MCHC 34.4 g/dl (32-36) RDW 13.2 % (11.5-14.5) Plt Count 246 k/mm3 (150-375) MPV 8.8 fl (7.4-10.4) Immature Gran % (Auto) 0.3 % (0-0.5) Neut % (Auto) 61.7 % (45.5-73.1) Lymph % (Auto) 27.8 % (18.3-44.2) [place] % (Auto) 7.4 % (2.6-8.5) Eos % (Auto) 2.5 % (0-4.4) Baso % (Auto) 0.3 % (0.2-1.2) Lymph # (Auto) 3.18 K/mm3 (0.9-3.2) [place] # (Auto) 0.9 H K/mm3 (0.1-0.6) Eos # (Auto) 0.3 K/mm3 (0-0.3) Baso # (Auto) 0.0 K/mm3 (0.0-0.1) Abs Immat Gran (auto) 0.04 H K/mm3 (0.00-0.031) Absolute Neuts (auto) 7.0 H K/mm3 (1.3-6.7) Absolute Nucleated RBC 0.000 K/mm3 (0.0-0.012) Nucleated RBC % 0.0 % (0.0-0.2) Sodium 138 mmol/L (137-145) Potassium 3.8 mmol/L (3.4-5.0) Chloride 104 mmol/L (98-107) Carbon Dioxide 27 mmol/L (22-30) Anion Gap 7 mmol/L (4-12) BUN 21 H mg/dL (7-17) Creatinine 0.70 mg/dL (0.7-1.0) Estim Creat Clear Calc 106 ml/min Estimated GFR > 60 (59 - ) Glucose 103 mg/dL (65-110) Calcium 9.0 mg/dL (8.4-10.2) Total Bilirubin 0.6 mg/dL (0.2-1.3) AST 26 U/L (14-36) ALT 25 U/L (6-35) Alkaline Phosphatase 53 U/L (38-126) Total Protein 8.0 g/dL (6.3-8.2) Albumin 4.5 g/dL (3.5-5.1) Lipase 82 U/L (23-300) Urine Color Yellow (Yellow) Urine Appearance Clear (Clear) Urine pH 6.5 (5.0-9.0) Ur Specific [place] 1.030 (1.001-1.035) Urine Protein Trace mg/dL (Negative) Urine Glucose (UA) Negative mg/dL (Negative) Urine Ketones Negative mg/dL (Negative) Ur Blood (Man) Negative (Negative) Urine Nitrate Negative (Negative) Urine Bilirubin Negative (Negative) Urine Urobilinogen 1.0 mg/dL (<2.0) Leukocyte Esterase Rfl Negative ARIAN/UL (Negative) Urine RBC 0-2 /hpf (0-2) Urine WBC 0-5 /hpf (0-3) Ur Squamous Epith Cells Occasional /hpf (Few) Urine Bacteria 1+ H /hpf Urine Casts 0-2 Patient hx anesthesia problems: none Family hx anesthesia problems: none Results Review: All pre-operative results and documents have been reviewed as part of the pre-operative evaluation. COUNT INCLUDES THE [facility] Past Medical History Medical History (Updated 05/18/24 @ 09:41 by Jorge Tony DO) Anxiety Depression Glaucoma STEVEN (obstructive sleep apnea) Family History Family History (Reviewed 05/18/24 @ 03:12 by Baldomero
--- NOTE | 2024-05-18 09:58 | PM.IMHP ---
H&P: HPI History of Present Illness Date/Time: 05/18/24 09:58 Chief Complaint: Right upper quadrant pain Narrative: Patient is a 44-year-old woman who has been to an emergency room 3 different times now with postprandial right upper quadrant pain. She has had an ultrasound and a CT scan both of which show gallstones. Her initial visit was in the emergency room in [facility]. She tried to stay on a low-fat diet but ended up coming to our emergency room 3 days ago. She had a follow-up appointment with my partner, Dr. Conley, but again had severe pain last night and came to the emergency room. She has continued to have pain requiring Dilaudid. She is admitted and taken to surgery today for laparoscopic cholecystectomy. [place] blood [place] count [place] [id number] early this morning. Her liver function tests were normal as was her lipase both on her 1st visit to the emergency room and again early this morning. Review of Systems Review of Systems: All systems reviewed & are unremarkable except as noted in HPI and below (HPI) [facility] Past Medical History Medical History Anxiety Depression Glaucoma STEVEN (obstructive sleep apnea) Family History Family History Father Heart disease Mother Heart disease Depression Diabetes mellitus Sibling Depression Cerebrovascular accident Disorder of thyroid Social History Social History Smoking packs per day: 1 Smoking cigarettes per day: 20.0 Years smoked: 25 Smoking pack-years: 25.00 Smoking status: Current every day smoker Tobacco type: cigarettes Alcohol intake: current Drinks per week: 2 Alcohol use details: once or twice or month wine or a mixed drink Substance use: never Substance use type: does not use Do You Feel Safe in your Home?: Yes Lack of Transportation: No Lack of Food: Never True Current Housing: I Have Housing Concerned About Future Housing: No Difficulty Paying Gas/Electric Bills: No Difficulty Paying for Meds: No Currently Unemployed: No Education: High School Diploma/GED Difficulty w/ Childcare or Family Care: No Living arrangements: with family Occupation/Education: occupation 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[employer] Gender identity (if verbalized by the patient): Female Spiritual care concerns: No Agree to blood products: Yes Meds Home Medications and Allergies Home Medications Medication Instructions Recorded Confirmed Type travoprost 0.004 % eye drops 1 drp EACH EYE HS 05/17/22 05/18/24 History cyclobenzaprine 5 mg tablet 5 mg PO BID PRN muscle spasm #30 10/24/23 05/18/24 Rx tabs escitalopram oxalate 10 mg tablet 10 mg PO DAILY #90 tabs 01/17/24 05/18/24 Rx (Lexapro) hydrocodone 5 mg-acetaminophen 325 1 tablet PO Q6H PRN pain 3 days 05/15/24 05/18/24 Rx mg tablet #12 tabs famotidine 40 mg tablet 40 mg PO HS PRN Indigestion 05/18/24 05/18/24 History ketorolac 10 mg tablet 10 mg PO Q6H PRN Pain 05/18/24 05/18/24 History Allergies Allergy/AdvReac Type Severity Reaction Status Date / Time No Known Allergies Allergy Verified 05/18/24 05:35 Vital Signs Vital Signs - 24 hr 05/18/24 02:13 05/18/24 05:17 05/18/24 02:45 Temperature 36.3 C L Pulse Rate 62 69 63 Respiratory Rate 17 18 18 Blood Pressure 142/98 H 118/56 L Pulse Oximetry 100 98 100 Oxygen Delivery Room Air 05/18/24 03:07 05/18/24 03:21 05/18/24 03:30 Temperature Pulse Rate 68 68 69 Respiratory Rate 17 19 18 Blood Pressure Pulse Oximetry 98 97 97 Oxygen Delivery 05/18/24 03:32 05/18/24 03:45 05/18/24 04:00 Temperature Pulse Rate 68 66 67 Respiratory Rate 16 11 L 18 Blood Pressure 128/71 Pulse Oximetry 97 98 98 Oxygen Delivery 05/18/24 04:02 05/18/24 04:15 05/18/24 04:17 Temp
--- NOTE | 2024-05-18 10:04 | WPDHPUPDATE1 ---
History and Physical Update Update Date/Time: 05/18/24 10:04 History and Physical has been reviewed, including an updated exam of the patient. There are NO changes in the patient's condition. Risks, benefits, and alternatives have been discussed and questions answered. Patient agrees to proceed with procedure.
[2024-05-18] MEDS: BUPIVACAINE/EPINEPHRINE 0.5% 10 ML VIAL 30 ML INFILTRATE (10:37)
[2024-05-18] MEDS: LACTATED RINGERS 1,000 ML 30 ML IV CONT ×2 (11:53→11:57)
--- NOTE | 2024-05-18 12:06 | W.PM.PROC2 ---
Procedure Note - Detailed Date of Procedure 05/18/24 Pre-op Diagnosis Chronic cholecystitis, cholelithiasis Post-op Diagnosis Other (Acute on chronic cholecystitis, cholelithiasis) Procedure Performed Laparoscopic cholecystectomy Surgeon Dorian Dow MD Inverted Block Operator Marko Kaur,[facility] Anesthesia General and Local Indications Patient has had several severe episodes of right upper quadrant postprandial abdominal pain. She has had imaging which has shown gallstones. She came to the emergency room late last night and early this morning with recurrence of this pain. She is taken to surgery now for laparoscopic cholecystectomy. Findings The gallbladder wall was thickened consistent with chronic inflammation, however, there was a lot of edema and the whole dissection was extremely vascular. Even using cautery to dissect every cut edge would bleed. The tissue plane between the gallbladder and the liver was non-existent near the fundus of the gallbladder. The cystic duct was not dilated. There did appear to be a stone in the neck of the gallbladder. Gallbladder was very thickened and edematous and difficult to grasp and manipulate. Liver appeared normal. Blood loss was at least 5 times what is typical for laparoscopic cholecystectomy. The operation took 3 times as long as the typical laparoscopic cholecystectomy. This was definitely a significantly difficult procedure. Description of Procedure Patient was taken to surgery and induced into general anesthesia. The abdomen is prepped and draped. The varies needle was introduced in the epigastric area. We insufflated the abdomen via the varies needle after insuring intraperitoneal location with saline drop technique. I then tried to pass an applied Medical optical trocar into the epigastric area but range to difficulty which we attributed to the falciform ligament. I then abandoned this mode of access and went to the left subcostal position. Local was infiltrated here and an incision made. A 5 mm applied Medical optical trocar was able to be introduced into the peritoneal cavity without difficulty. Review of the epigastric area showed that the falciform ligament was quite generous and was the source of the problems gaining access from the epigastric area. Using this port, we placed another 5 mm port in the right lower quadrant under direct visualization. The camera and CO2 insufflation was moved to here. I then placed a 10 11 port in the epigastric area without difficulty. The left subcostal trocar was removed and this incision was temporarily closed with a 3-0 Vicryl suture. Two other 5 mm ports were placed, 1 in the left mid abdomen and 1 just to the right of the umbilicus. Patient was placed in Trendelenburg. It was immediately noticed that the gallbladder was acutely inflamed and very distended. It is wall was clearly thickened. There were no adhesions to the gallbladder. I used a laparoscopic aspirator and decompressed the gallbladder. Dark red fluid was removed. As the gallbladder decompressed it was obvious that the mckeon were extremely thickened. There was no oozing of bile from the cholecystotomy. We then retracted the gallbladder anterosuperiorly. It was difficult to grasp and throughout the surgery our graspers repeatedly would come off or slip off of the gallbladder during dissection. We attended 1st to the cholecystohepatic triangle. Careful dissection was started here but, as I mentioned before, all dissection was very bloody due to the acute inflammation and hypervascularity. Continued dissection and suctioning were used. Was eventually able to identify the cystic artery and cystic duct. I irrigated and suctioned and then tried to achieve as much hemostasis as I could. I then continued to dissect out the cystic duct and cystic artery until they were dissected out clearly. I then continued dissection of the gallbladder off the liver for at least its lower 3rd. Critical view was achiev
--- NOTE | 2024-05-18 13:22 | PC.NURSE ---
Returned from PACU. Report received from PENNY Short.
[2024-05-18] MEDS: HYDROcodone/acetaminophen (*CRX) 5-325 MG TABLET 1 TAB PO ×2 (13:26→17:23)
[2024-05-18] MEDS: LACTATED RINGERS 1,000 ML 100 ML IV CONT (13:30)
[2024-05-18] MEDS: CYCLOBENZAPRINE HCL 5 MG TABLET PO (17:24)
[2024-05-18] MEDS: ENOXAPARIN 30 MG/0.3 ML SYRINGE SUB-Q (20:44)
[2024-05-18] MEDS: HYDROcodone/acetaminophen (*CRX) 10-325 MG TABLET 1 TAB PO (21:36)
[2024-05-19] MEDS: HYDROmorphone HCL INJ (*CRX) 1 MG/ML SYR IV PUSH (00:16)
[2024-05-19 04:03] VITALS: BP 105/47; PULSE 64; RESP 20; TEMP 36.9; O2SAT 98
[2024-05-19] MEDS: HYDROcodone/acetaminophen (*CRX) 10-325 MG TABLET 1 TAB PO ×2 (04:10→08:28)
[2024-05-19] MEDS: CYCLOBENZAPRINE HCL 5 MG TABLET PO (04:10)
[2024-05-19 04:44] LABS: Hematocrit 40.1 % (37.0-47.0); Mean Corpuscular HGB Conc 32.4 g/dl (32-36); Mean Corpuscular Hemoglobin 31.7 pg (26-34); Mean Corpuscular Volume 97.8 fl (80-100); Mean Platelet Volume 8.9 fl (7.4-10.4); Platelet Count Result 195 k/mm3 (150-375); Red Cell Distribution Width 13.4 % (11.5-14.5); White Blood Count 7.9 K/mm3 (4.5-10.0)
[2024-05-19 04:59] LABS: Anion Gap 0 mmol/L (4-12); Blood Urea Nitrogen 7 mg/dL (7-17); Calcium 8.5 mg/dL (8.4-10.2); Carbon Dioxide 31 mmol/L (22-30); Chloride 107 mmol/L (98-107); Estimated CRCL calculation 111 ml/min; Estimated Glomerular Filt Rate > 60; Glucose 119 mg/dL (65-110); Potassium 4.9 mmol/L (3.4-5.0); Sodium 138 mmol/L (137-145)
[2024-05-19] MEDS: PIPERACILLN/TAZ 3.375GM/NS50ML 3.375 GM/50 ML BAG IVPB (05:21)
[2024-05-19 08:00] VITALS: BP 109/58; PULSE 62; RESP 20; TEMP 36.2; O2SAT 98
--- NOTE | 2024-05-19 11:19 | PM.DS ---
DS: Admitting Diagnosis Discharge Date 05/18/2024 Admitting Diagnosis Chronic cholecystitis, cholelithiasis DS: Discharge Diagnosis Discharge Diagnosis (1) Cholelithiasis and acute cholecystitis with obstruction: Code(s): K80.01 - Calculus of gallbladder with acute cholecystitis with obstruction Status: Acute Assessment and Plan: Patient underwent laparoscopic cholecystectomy on 05/18/[address] Dow and was discharged the next day. DS: Summary Hospital Course Hospital Course: Patient is a 44-year-old woman who had been to an emergency room 3 different times now with postprandial right upper quadrant pain. She had an ultrasound and a CT scan both of which show gallstones. Her initial visit was in the emergency room in [facility]. She tried to stay on a low-fat diet but ended up coming to our emergency room 3 days ago. She had a follow-up appointment with my partner, Dr. Conley, but again had severe pain last night and came to the emergency room. She was admitted and continued to have pain requiring Dilaudid. White blood cell count [place] [address]. Her liver function tests were normal as was her lipase both on her 1st visit to the emergency room and on the day of admission. After evaluation, she was taken to surgery on the day of admission, 05/18/2024, by Dr. Dow and underwent a fairly difficult laparoscopic cholecystectomy. Her preoperative diagnosis was chronic cholecystitis but actually she had acute cholecystitis with gallstone obstructing her cystic duct. The surgery was quite bloody and took much longer than usual. There was evidence of infection. Following surgery, the patient was kept in the hospital and continued on IV Zosyn antibiotics. She was doing well with a normal white count and no fever on postop day 1. She was ambulating and already had taken a shower when I came to see her. Her incisions look good and she is comfortable on oral pain medication. She is discharged on 05/19/2020 for the in good condition. Status at Discharge Functional status at discharge: independent ambulation Overall status at discharge: patient is progressing back to baseline Time Spent with Patient Time attestation: Total time spent providing and/or coordinating discharge services: Time spent: Less than 30 minutes Exam Const: General: comfortable and no acute distress Orientation/consciousness: patient oriented x3 GI: Inspection: incision (Dry and healing well) GI Palp: Yes Soft to palpation, Yes Tenderness to palpation present (GI) (Upper abdomen), No Guarding due to palpation present (GI) and No Rebound tenderness present Neuro: General: patient oriented x3 and no focal motor deficits Extrem: General: no calf tenderness and no edema Psych: Affect: normal affect Insight: Good insight present (Psych) Judgement: Good judgement present (Psych) DS: Data Data Completed and Pending Pending studies at discharge: Pending at discharge 05/18/24 10:38 Surgical [PTH] Routine Labs on day of discharge: Labs from last 24 hours 05/19/24 04:18 WBC 7.9 RBC 4.10 L Hgb 13.0 Hct 40.1 MCV 97.8 MCH 31.7 MCHC 32.4 RDW 13.4 Plt Count 195 MPV 8.9 Sodium 138 Potassium 4.9 Chloride 107 Carbon Dioxide 31 H Anion Gap 0 L BUN 7 D Creatinine 0.70 Estim Creat Clear Calc 111 Estimated GFR > 60 Glucose 119 H Calcium 8.5 Discharge Plan Discharge Attending physician on discharge: Dorian Dow Consulting providers: Manasa Harris Discharging Clinician: Dorian Dow Anticipated Discharge Date/Time: 05/19/24 11:28 Patient Disposition: Home, Self-Care Activity: may shower, no straining and as tolerated Diet: low fat Wound Care Instructions: incision open to air Discharge Instructions: 1. May shower the day after surgery over incisions. 2. Call office for: -Wound increasingly painful or bleeding -Vomiting -Fever of greater than 101 degrees 3. Expect
[2024-05-19 12:00] VITALS: BP 121/66; PULSE 58; RESP 24; TEMP 36.5; O2SAT 100
== END 2024-05-19 13:15 | disposition home or self-care (01) ==
LOC: ANHED 03:30 → ANH2MED 05:16
PROVIDERS: Admitting Provider Surgery; Emergency Provider Emergency Medicine; PCP Nurse Practitioner Adult Health; Visit Provider Surgery
PROC: 0FT44ZZ Resection of Gallbladder, Percutaneous Endoscopic Approach (ICD-10-PCS; CPT 47562; principal; 2024-05-18 10:00)
DX: K80.12 Calculus of gallbladder with acute and chronic cholecystitis without obstruction (principal); F41.9 Anxiety disorder, unspecified; F32.A Depression, unspecified; H40.9 Unspecified glaucoma; G47.33 Obstructive sleep apnea (adult) (pediatric); F17.210 Nicotine dependence, cigarettes, uncomplicated; E66.9 Obesity, unspecified; Z68.36 Body mass index [BMI] 36.0-36.9, adult; Z79.85 Long-term (current) use of injectable non-insulin antidiabetic drugs
CPT/HCPCS: 47562; 36415; 80048; 80053; 81001; 81025; 83690; 85025; 85027; 88304; 96365; 96375; 99285; A9270; G0378; J1170; J1650; J2250; J2270; J2405; J2543; J2704; J3010; J7030; J7120

== ENCOUNTER 2024-09-03 15:17 | Outpatient (CLI) | payer OTHER, SELFPAY ==
--- NOTE | ~2024-09-03 | XR_ITS ---
Left Knee Technique: AP, lateral, and oblique views were obtained. Clinical History: Pain Findings: No fracture or dislocation is seen. Osseous alignment is anatomic. Joint spaces are preserv ed without degenerative or erosive change. Soft tissues are unremarkable. No joint effusion is seen. Impression: Unremarkable left knee radiographs. Reviewed, dictated and finalized at [facility]. Impression: Unremarkable left knee radiographs.
== END 2024-09-03 15:18 | disposition home or self-care (01) ==
PROVIDERS: PCP Nurse Practitioner Adult Health; Visit Provider Nurse Practitioner Adult Health
DX: M25.562 Pain in left knee (principal)
CPT/HCPCS: 73564

== ENCOUNTER 2025-02-11 19:09 | Emergency (ER) | payer OTHER, SELFPAY ==
--- OUTSIDE RECORDS SUMMARY | 2025-02-11 19:12 | XMS_ITS | Clinical Summary ---
Author Organization [facility] Address [address] [place] [address] Phone Care Team Providers Care Firearms Inspector Name Role Phone Shashi Weeks MD Primary Care Provider [phone] Allergies No known active allergies Medications Travoprost (TRAVATAN Z OP) Place 1 Drop in affected eye(s) nightly. Both eyes. Active oxyCODONE-aceta minophen (PERCOCET) 5-325 MG Tablet Take 1 Tab by mouth every 4 hours as needed for Moderate or more severe pain. 30 Tab 01/15/2019 Active Active Problems Problem Noted Date Diagnosed Date Plantar fasciitis 01/15/2019 Glaucoma 01/15/2019 Tobacco dependence syndrome 01/15/2019 Family History Medical History Relation Name Comments Congestive Heart Failure Father Chronic Obstructive Pulmonary Disease Mother Diabetes Mother Heart Attack Mother Relation Name Status Comments Father Mother Alive Social History Tobacco Use Types Packs/Day Years Used Date Smoking Tobacco: Every Day Cigarettes 1 22 Smokeless Tobacco: Never Tobacco Cessation:Ready to Q uit: Yes; Counseling Given: Yes Alcohol Use Standard Drinks/Week Comments Yes 0 (1 standard drink = 0.6 oz pur e alcohol) Rarely Comments Unknown Sex and Gender Information Value Date Recorded Sex Assigned at Not on file Legal Sex Female 9:59 PM CDT Gender Identity Not on file Sexual Orientation Not on file Last Filed Vital Signs Vital Sign Reading Time Taken Comments Blood Pressure 112/78 01/15/2019 9:40 AM BIOFUELS PROCESSING TECHNICIAN Pulse 63 01/15/2019 9:40 AM BIOFUELS PROCESSING TECHNICIAN Temperature 36.1 C (97 F) 01/15/2019 9:40 AM BIOFUELS PROCESSING TECHNICIAN Respiratory Rate 16 01/15/2019 9:40 AM BIOFUELS PROCESSING TECHNICIAN Oxygen Saturation 97% 01/15/2019 9:40 AM BIOFUELS PROCESSING TECHNICIAN Inhaled Oxygen Concentration - - Weight 113.4 kg (250 lb) 01/11/2019 9:00 AM BIOFUELS PROCESSING TECHNICIAN Height 170.2 cm (5' 7 ) 01/11/2019 9:00 AM BIOFUELS PROCESSING TECHNICIAN Body Mass Index 39.16 01/11/2019 9:00 AM BIOFUELS PROCESSING TECHNICIAN Plan of Treatment Health Maintenance Due Date Last Done Comments Hepatitis C Virus (HCV) Screening 1980 TdaP Immunization 1980 Hepatitis B Immunization (1 of 3 - 19+ 3-dose series) 1999 Pap Smear 2001 Cervical Cancer Screening (CCS) 2010 HPV/Cotest 2010 Discussion re Starting/Frequency of Mammograms 2020 Influenza Immunization (#1) 2024 SARS-COV-2 Immunization ( season) 2024 11/23/2021, 11/02/2021 Respiratory Syncytial Virus (RSV) Immunization (Adult) (1 - 1-dose 75+ series) 2055 Meningococcal Immunization (ACWY) Aged Out No longer eligible b ased on patient's age to complete this topic Pneumococcal Immunization Combined Aged Out No longer eligible b ased on patient's age to complete this topic Rotavirus Immunization Aged Out No lo nger eligible based on patient's age to complete this topic Insurance [employer] [address] [place] [address] [facility] Care Teams Firearms Inspector Relationship Specialty Start Date End Date Shashi Weeks MD [address] [place] [address] [place] [id number] PCP - General Family Medicine 02/15/16
--- OUTSIDE RECORDS SUMMARY | 2025-02-11 19:12 | XMS_ITS | Clinical Summary ---
Author Organization [facility] Address [address] [place] [address] Care Team Providers Care Import/Export Clerk Name Role Phone Samina Renee MD, Zac Garg Unavailable [phone] No, Physician Primary Care Provider [phone] Allergies No known active allergies Medications travoprost (TRAVATAN Z) 0.004 % drops Administer into both eyes. Active turmeric root extract 500 mg capsule Take by mouth Active varenicline (CHANTIX) 1 mg tabletIndicatio ns:Smoking Cessation Take 1 tablet (1 mg total) by mouth 2 (two) times a day Take with full glass of water. 60 tablet 4 1 Active vit C-s.ngo-klever ry-grape sd 14-608-70-75-20 mg capsule Take by mouth Activ e flaxseed oil 1,000 mg capsule Take 2,000 mg by mouth Active garlic extract 600 mg tablet Take by mouth Ac tive omega 8-eqy-kid-fish oil (Fish OiL) 100-160-1,000 mg capsule Take by mouth 2 (two) times a day Active naproxen (NAPROSYN) 500 mg tablet Take 1 tablet (500 mg total) by mouth 2 (two) times a day with meals 30 tablet 2 Active cyclobenzaprine (FLEXERIL) 10 mg tablet Take 1 tablet (10 mg total) by mouth 2 (two) times a day as needed for muscle spasms 20 tablet 2 Active lidocaine (LIDODERM) 5 % Place 1 patch on the skin daily Remove & discard patch within 12 hours or as directed by . 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 Increase daily exercise and focus on trying to reduce weight. Localized soft tissue swelling 03/25/2021 Left thigh pain 03/25/2021 Assessment & Plan (03/25/2021 1:19 PM CDT): Suspect symptomatic varicosities. Ultrasound ordered. Class 3 severe obesity due t o excess calories without serious comorbidity with body mass index (BMI) of 40.0 to 44.9 in adult 01/05/2021 Assessment & Plan (03/25/2021 1:19 PM CDT): Weight reduction, daily exercise and dietary modifications recommended. Assessment & Plan (01/05/2021 8:49 AM KNEE BOLTER): Advised patient to quit smoking. 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 Patient congratulated and encouraged to continue Chantix. Assessment & Plan (01/05/2021 8:49 AM KNEE BOLTER): Advised patient to quit smoking. Chantix will be started. Pelvic floor dysfunction in female 10/15/2018 Resolved Problems Problem Noted Date Diagnosed Date Resolved Date Chest pain 01/05/2021 03/25/2021 Assessment & Plan (01/05/2021 8:48 AM KNEE BOLTER): No acute CP today, CXR ordered, will follow. Urinary urgency 10/15/2018 01/05/2021 Urinary frequency 10/15/2018 01/05/2021 Urge incontinence of urine 10/15/2018 0 01/05/2021 Immunizations Immunization Administration Dates Next Due Influenza, Unspecified 08/27/2020(Deferred: Mary ent Refused) Tdap 04/23/2014 Surgical History Surgery Date Site/Laterality Comments TUBAL LIGATION KNEE SURGERY laparoscopic knee surgery to remove scar tissue CARPAL TUNNEL RELEASE PLANTAR FASCIA RELEASE Medical History Medical History Date Comments Hx Other Medical Tubal 2003; Com ments: FREDRICKS 12/01/2014 - Hx Other Medical Knee 2012; Comm ents: SHEFALI 12/01/2014 - History of pneumonia Glaucoma SOB (shortness of breath) Chest pain Morbid obesity (HCC) Family History Medical History Relation Name Comments Hypertension Brother Heart disease Father Diabetes Mother Heart disease Mother urinary incontinence Mother Heart disease Other 1 Family history of Heart problems; Arthritis Other 2 Family history of Arthritis; Diabetes Other 3 Family history of Diabetes mellitus; Relation Name Status Comments Brother Father Mother Alive Other 1 Other 2 Other 3 Social History Tobacco Use Types Packs/Day Years Used Date Smoking Tobacco: Former Cigarettes 1 26.3 0 11/27/1994 - 03/21/2021 Smokeless Tobacco: Never Tobacco Cessation:Counseling Given: Yes Alcohol Use Standard Drinks/Week Comments No 0 (1 standard drink = 0.6 oz pur e alcohol) AUDIT-C Answer Date Recorded Q1: How often do you have a drink containing alc ohol? Monthly or less 12/06/2021 Q2: How many drinks containi ng alcohol do you have on a typical day when you are drinking? 3 or 4 12/06/2021 Frequency of Binge Drinking Not on file 11/27 PHQ-2 Answer Date Recorded PHQ-2 Total Score (If total score is 3 or more points, staff should administer the PHQ-9) 0 03/25/2021 Comments No Sex and Gender Information Value Date Recorded Sex Assigned at Not on file Legal Sex Female 6:11 AM KNEE BOLTER Gender Identity Not on file Sexual Orientation Not on file Obstetrics History Para Term AB IAB SAB Ectopic Multiple Livin g Live Births 2 2 2 2 2 Date Outcome GA Total Labor Labor/2nd/3rd Weight Sex Type Anes PTL Sania A1 A5 Name Clin Term Vag-S pont Living Term Vag-S pont Living Last Filed Vital Signs Vital Sign Reading Time Taken Comments Blood Pressure 142/81 02/20/2022 12:45 AM CDT Pulse 79 02/20/2022 12:42 AM CDT Temperature 36.5 C (97.7 F) 02/20/2022 12:42 AM CDT Respiratory Rate 16 02/20/2022 12:42 AM CDT Oxygen Saturation 100% 02/20/2022 12:42 AM CDT Inhaled Oxygen Concentration - - Weight 117.9 kg (260 lb) 02/19/2022 10:09 PM CDT Height 170.2 cm (5' 7 ) 02/19/2022 10:09 PM CDT Body Mass Index 40.72 02/19/2022 10:09 PM CDT Plan of Treatment Health Maintenance Due Date Last Done Comments Cervical Cancer Screening 1980 Varicella Vaccines (1 of 2 - 13+ 2-dose series) 1993 Hepatitis B Screening 1998 Regular Well Visit/Exam 18-64 01/05/2022 01/05/2021 Breast Cancer Screening-Mammogram 2022 2021 Depression Screening 03/25/2022 03/25/2021, 01/05/2021 DTaP/Tdap/Td Vaccine (2 - Td or Tdap) 04/23/2024 04/23/2014 Covid-19 Vaccine (3 - 2023-2 5 season) 2024 11/23/2021, 11/02/2021 Influenza Vaccine (#1) 2024 Hepatitis C Screening Completed 01/05/2021 HPV Vaccines Aged Out No longer eligi ble based on patient's age to complete this topic Pneumococcal vaccine <65 Aged Out No longer eligible based on patient's age to complete this topic Procedures Procedure Name Priority Date/Time Associated Diagnosis Comments SCREENING MAMMOGRAM BILATERAL W ALEX Schedule Routine, Read Routine (OP Routine) 2021 11:30 AM CDT Screening mammogram for high-risk patient HEPATITIS C ANTIBODY Routine 01/05/2021 9:21 AM KNEE BOLTER Encounter for hepatitis C screening test for low risk patient from Last 3 Months or Most Recently Relevant to Health Maintenance Results * Screening Mammogram Bilateral W Alex (2021 11:30 AM CDT) Anatomical Region Laterality Modality Breast Bilateral Mammography 03/08/2021 9:58 AM CDT Impressions 03/08/2021 10:03 AM CDT There is no mammographic evidence of malignancy. A 1 year screening mammogram is recommended. BI-RADS: 1 - Negative. The patient will be entered into a reminder system with a target due date of 1 year for her next mammogram. Electronically signed by: Miguelito Flores M.D. Narrative 03/08/2021 10:03 AM CDT EXAMINATION: SCREENING MAMMOGRAM BILATERAL W ALEX ORDERING HEALTHCARE PROVIDER: CARLITO JANE HISTORY: Baseline screening mammography. COMPARISON: None available. TECHNIQUE: CC and MLO views of the bilateral breasts were obtained with digital technique using breast tomosynthesis with C view. Computer aided detection was utilized. FINDINGS: DENSITY: There are scattered fibroglandular elements in the bilateral breasts. BREASTS: There are no suspicious masses, suspicious calcifications, or other suspicious findings in either breast. us Carlito Jane DO IMG MAMMO PROCEDURES Final Result * Hepatitis C antibody (01/05/2021 9:21 AM KNEE BOLTER) Hep C Ab Nonreactive Nonreactive [facility] ([place]) Comment: Interpretive Data Nonreactive: Antibodies to HCV not detected. Does NOT exclude the possibility of recent exposure to HCV. Equivocal: Equivocal for HCV antibodies. Supplemental molecular testing will be automatically performed to determine infection status in accordance with current CDC screening recommendations. Reactive: Positive for HCV antibodies. This may represent current or past HCV infection. Supplemental molecular testing will be automatically performed to determine current infection status in accordance with current CDC screening recommendations. Interpretive data was last revised on 2020. Testing performed by: [facility], [address] [place] [address], [place]., [address] Blood specimen (specimen) 01/05/2021 9:21 AM KNEE BOLTER 01/05/2021 2:38 PM KNEE BOLTER us Carlito Jane DO LAB MICROBIOLOGY - GENERAL ORDERABLES Final Result [facility]) 1 [facility] Department [place] [address] from Last 3 Months or Most Recently Relevant to Health Maintenance Insurance Care Teams Import/Export Clerk Relationship Specialty Start Date End Date No, Physician PCP - General 05/05/22 Zac Haas Jr., MD [address] [place] [address] Surgeon Orthopedic Surgery 01/05/21
--- OUTSIDE RECORDS SUMMARY | 2025-02-11 19:12 | XMS_ITS | Encounter Summary ---
Author Organization [facility] Address [address] [place] [address] Phone Care Team Providers Care Utility Service Worker Name Role Phone Shashi Weeks MD Primary Care Provider [phone] Reason for Referral * Radiology Services (Routine) - Closed Specialty Diagnoses / Procedures Referred By Stephen edwards Referred To Contact Radiology Diagnoses Carpal tunnel syndrome on right Right hand pain Pre-op testing Procedures EKG 12 LEAD Zac Haas MD Phone: tel: fax: Referral ID Status Reason Start Date Expiration Date Visits Re quested Visits Authorized [id number] Closed 03/23/2020 1 1 * Radiology Services (Routine) - Closed Specialty Diagnoses / Procedures Referred By Stephen edwards Referred To Contact Radiology Diagnoses Carpal tunnel syndrome on right Right hand pain Pre-op testing Procedures XR CHEST 2 VIEWS Zac Haas MD Phone: tel: fax: Referral ID Status Reason Start Date Expiration Date Visits Re quested Visits Authorized [id number] Closed 03/23/2020 1 1 Encounter Details Date Type Department Care Team (Latest Contact Info) Description 03/23/2020 Transcribe Orders [facility] Admitting [address] [place] [id number] Zac Haas MD [address] [place] [id number] Carpal tunnel syndrome on right (Primary Dx); Right hand pain; Pre-op testing Social History Tobacco Use Types Packs/Day Years Used Date Smoking Tobacco: Every Day Cigarettes 1 22 Smokeless Tobacco: Never Alcohol Use Standard Drinks/Week Comments Yes 0 (1 standard drink = 0.6 oz pur e alcohol) Rarely Comments Unknown Sex and Gender Information Value Date Recorded Sex Assigned at Not on file Legal Sex Female 9:59 PM CDT Gender Identity Not on file Sexual Orientation Not on file COVID-19 Exposure Response Date Recorded In the last month, have you been in contact with someone who was confirmed or suspected to have Coronavirus / COVID-19? No / Unsure 03/23/2020 9:26 AM CDT documented as of this encounter Plan of Treatment Not on file documented as of this encounter Results * EKG 12 LEAD (03/23/2020 10:27 AM CDT) Ventricular Rate BPM EXTERNAL EKG Atrial Rate BPM EXTERNAL EKG P-R Interval 154 ms EXTERNAL EKG QRS Duration 88 ms EXTERNAL EKG Q-T Duration 400 ms EXTERNAL EKG QTC CALCULATION 413 ms EXTERNAL EKG P [place] 42 degrees EXTERNAL EKG R [place] 26 degrees EXTERNAL EKG T [place] 38 degrees EXTERNAL EKG 03/23/2020 10:2 7 AM CDT Impressions EXTERNAL EKG - 03/24/2020 10:52 AM CDT Sinus rhythm Within normal limits as previously Comparison Summary: No significant change Summary: Normal ECG Compared with:01/04/2018 12:09 PM Confirmed by Caren Houser [id number] on 03/24/2020 10:52:54 AM Narrative Procedure Note Geno Fabian MD - 03/24/2020 IMPRESSION: Sinus rhythm Within normal limits as previously Comparison Summary: No significant change Summary: Normal ECG Compared with:01/04/2018 12:09 PM Confirmed by Caren Houser [id number] on 03/24/2020 10:52:54 AM Zac Haas MD IMG ECG ORDERABLES Final Result EXTERNAL EKG * XR CHEST 2 VIEWS (03/23/2020 10:18 AM CDT) Anatomical Region Laterality Modality Chest N/A Digital Radiogra phy 03/23/2020 4:41 PM CDT Impressions 03/23/2020 4:43 PM CDT IMPRESSION: No focal pneumonic consolidation. Narrative 03/23/2020 4:43 PM CDT EXAM DESCRIPTION: XR CHEST 2 VIEWS REASON FOR STUDY: Carpal tunnel syndrome, right upper limb. Preoperative assessment for carpal tunnel surgery scheduled for March 27. TECHNIQUE: Frontal and lateral radiographic views of the chest acquired. COMPARISON: Chest radiograph dated 01/14/2014 FINDINGS: LUNGS/PLEURA: No focal consolidation or pneumothorax. No pleural effusion. HEART/MEDIASTINUM: The heart is not enlarged. HARDWARE/LINES/TUBES: None. BONES: Without acute interval change. THIS IS AN ELECTRONICALLY VERIFIED FINAL REPORT 03/23/2020 4:41 PM - Electronically signed by Jonah Iglesias D.O. AP: AP Report ID: [id number] Reading Location: [id number] Procedure Note Jonah Iglesias DO - 03/23/2020 EXAM DESCRIPTION: XR CHEST 2 VIEWS REASON FOR STUDY: Carpal tunnel syndrome, right upper limb. Preoperative assessment for carpal tunnel surgery scheduled for March 27. TECHNIQUE: Frontal and lateral radiographic views of the chest acquired. COMPARISON: Chest radiograph dated 01/14/2014 FINDINGS: LUNGS/PLEURA: No focal consolidation or pneumothorax. No pleural effusion. HEART/MEDIASTINUM: The heart is not enlarged. HARDWARE/LINES/TUBES: None. BONES: Without acute interval change. THIS IS AN ELECTRONICALLY VERIFIED FINAL REPORT 03/23/2020 4:41 PM - Electronically signed by Jonah Iglesias D.O. AP: AP Report ID: [id number] Reading Location: [id number] IMPRESSION: No focal pneumonic consolidation. Zac Haas MD IMG DIAGNOSTIC ORDERABLES Final Result * (ABNORMAL) CMP (COMPREHENSIVE METABOLIC PANEL) (03/23/2020 9:57 AM CDT) SODIUM 139 136 - 144 mmol/L 03/23/2020 10:49 AM CDT [facility] POTASSIUM 5.0 3.5 - 5.1 mmol/L 03/23/2020 10:49 AM CDT [facility] CHLORIDE 101 100 - 110 mmol/L 03/23/2020 10:49 AM CDT [facility] CO2, VENOUS 26 22 - 32 mmol/L 03/23/2020 10:49 AM CDT [facility] ANION GAP 17.0 8.0 - 20.0 mmol/L 03/23/2020 10:49 AM CDT [facility] GLUCOSE 103(H) 70 - 99 mg/dL 03/23/2020 10:49 AM CDT [facility] BUN 15 6 - 20 mg/dL 03/23/2020 10:49 AM CDT [facility] CREATININE, BLOOD 0.75 0.60 - 1.10 mg/dL 03/23/2020 10:49 AM CDT [facility] BUN/CREATININE RATIO 20 12 - 20 ratio 03/23/2020 10:49 AM CDT [facility] TOTAL PROTEIN 7.2 6.0 - 8.3 g/dL 03/23/2020 10:49 AM CDT [facility] ALBUMIN 4.3 3.5 - 5.2 g/dL 03/23/2020 10:49 AM CDT [facility] Comment: The colormetric methods used for the determination of Albumin may lead to falsely elevated test results in patients suffering from renal failure or insufficiency due to interference with other proteins. A/G RATIO 1.5 1.0 - 2.0 03/23/2020 10:49 AM CDT [facility] CALCIUM 9.7 8.9 - 10.3 mg/dL 03/23/2020 10:49 AM CDT [facility] T BILI 0.4 <=1.2 mg/dL 03/23/2020 10:49 AM CDT [facility] SGOT (AST) 19 <=32 U/L 03/23/2020 10:49 AM CDT [facility] SGPT (ALT) 30 <=33 U/L 03/23/2020 10:49 AM CDT [facility] ALKALINE PHOSPHATASE 70 35 - 105 U/L 03/23/2020 10:49 AM CDT [facility] GFR, EST. NONAFRICAN >60 >=60 03/23/2020 10:49 AM CDT [facility] GFR, EST. >60 >=60 020 10:49 AM CDT [facility] Comment: Creatinine Clearance is the preferred criteria for selecting drug dose adjustments in renally impaired patients. The GFR is provided as additional pertinent clinical information. GFR is reported in mL/min/1.73 sq m. Blood specimen (specimen) Venipuncture / Unknown 03/23/2020 9:57 AM CDT 03/23/2020 10:12 AM CDT us Zac Haas MD CHEMISTRY ORDERABLES Final Resul t [facility] [place] [address] documented in this encounter Visit Diagnoses Diagnosis Carpal tunnel syndrome on right- Primary Carpal tunnel syndrome Right hand pain Pain in limb Pre-op testing Preoperative examination, unspecified Carpal tunnel syndrome on right Carpal tunnel syndrome Right hand pain Pain in limb Pre-op testing Preoperative examination, unspecified Carpal tunnel syndrome on right Carpal tunnel syndrome Right hand pain Pain in limb Pre-op testing Preoperative examination, unspecified documented in this encounter Care Teams Utility Service Worker Relationship Specialty Start Date End Date Shashi Weeks MD [address] [place] [address] [place] [address] PCP - General Family Medicine 02/15/16 documented as of this encounter
--- OUTSIDE RECORDS SUMMARY | 2025-02-11 19:12 | XMS_ITS | Referral Summary ---
Author Organization [facility] Address [address] [place] [address] Care Team Providers Care Emergency Medical Service Manager Name Role Phone Samina Renee MD, Zac Garg Unavailable No, Physician Primary Care Provider [phone] Allergies No known active allergies Medications travoprost (TRAVATAN Z) 0.004 % drops Administer into both eyes. Active turmeric root extract 500 mg capsule Take by mouth Active varenicline (CHANTIX) 1 mg tabletIndicatio ns:Smoking Cessation Take 1 tablet (1 mg total) by mouth 2 (two) times a day Take with full glass of water. 60 tablet 4 1 Active vit C-s.ngo-klever ry-grape sd 98-350-57-75-20 mg capsule Take by mouth Activ e flaxseed oil 1,000 mg capsule Take 2,000 mg by mouth Active garlic extract 600 mg tablet Take by mouth Ac tive omega 9-wwc-nao-fish oil (Fish OiL) 100-160-1,000 mg capsule Take [...] recommended. Assessment & Plan (01/05/2021 8:49 AM RECREATION PROGRAM COORDINATOR): Advised patient to quit smoking. 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 Patient congratulated and encouraged to continue Chantix. Assessment & Plan (01/05/2021 8:49 AM RECREATION PROGRAM COORDINATOR): Advised patient to quit smoking. Chantix will be started. Pelvic floor dysfunction in female 10/15/2018 Resolved Problems Problem Noted Date Diagnosed Date Resolved Date Chest pain 01/05/2021 03/25/2021 Assessment & Plan (01/05/2021 8:48 AM RECREATION PROGRAM COORDINATOR): No acute CP today, CXR ordered, will follow. Urinary urgency 10/15/2018 01/05/2021 Urinary frequency 10/15/2018 01/05/2021 Urge incontinence of urine 10/15/2018 0 01/05/2021 Immunizations Immunization Administration Dates Next Due Influenza, Unspecified 08/27/2020(Deferred: Mary ent Refused) Tdap 04/23/2014 Social History Tobacco Use Types Packs/Day Years [...] on file Legal Sex Female 6:11 AM RECREATION PROGRAM COORDINATOR Gender Identity Not on file Sexual Orientation [...] 02/19/2022 10:09 PM CDT Plan of Treatment Not on file Procedures Procedure Name Priority Date/Time Associated Diagnosis Comments SCREENING MAMMOGRAM BILATERAL W ALYSIA Schedule Routine, Read Routine (OP Routine) 2021 11:30 AM CDT Screening mammogram for high-risk patient HEPATITIS C ANTIBODY Routine 01/05/2021 9:21 AM RECREATION PROGRAM COORDINATOR Encounter for hepatitis C screening test for low risk patient from Last 3 Months or Most Recently Relevant to Health Maintenance Results * Screening Mammogram Bilateral W Alysia (2021 11:30 AM CDT) Anatomical Region Laterality [...] AM CDT EXAMINATION: SCREENING MAMMOGRAM BILATERAL W ALYSIA ORDERING HEALTHCARE PROVIDER: MAMTA JANE HISTORY: Baseline screening mammography. COMPARISON: None available. TECHNIQUE: CC and MLO views of the bilateral breasts were obtained with digital technique using breast tomosynthesis with C view. Computer aided detection was utilized. FINDINGS: DENSITY: There are scattered fibroglandular elements in the bilateral breasts. BREASTS: There are no suspicious masses, suspicious calcifications, or other suspicious findings in either breast. us Mamta Jane DO IMG MAMMO PROCEDURES Final Result * Hepatitis C antibody (01/05/2021 9:21 AM RECREATION PROGRAM COORDINATOR) Hep C Ab Nonreactive Nonreactive [facility]) Comment: Interpretive Data Nonreactive: Antibodies to HCV [...] last revised on 2020. Testing performed by: [facility], [address] [place] [address], [place]., [address] Blood specimen (specimen) 01/05/2021 9:21 AM RECREATION PROGRAM COORDINATOR 01/05/2021 2:38 PM RECREATION PROGRAM COORDINATOR Mamta Jane DO LAB MICROBIOLOGY - GENERAL ORDERABLES Final Result [facility]) 1 [facility] [place] [address] from Last 3 Months or Most Recently Relevant to Health Maintenance Insurance Care Teams Emergency Medical Service Manager Relationship Specialty Start Date End Date No, Physician PCP - General 05/05/22 Zac Haas Jr., MD [address] [place] [id number] Surgeon Orthopedic Surgery 01/05/21
[2025-02-11 19:22] VITALS: BP 173/88; PULSE 83; RESP 20; TEMP 36.8; O2SAT 98
--- NOTE | 2025-02-11 19:54 | ED_ITS ---
HPI - General Adult General Chief complaint: Burn/Smoke Inhalation Stated complaint: chemical burn right knee Source: patient Mode of arrival: ambulatory Limitations: no limitations History of Present Illness HPI narrative: 44-year-old female presented for complaint of chemical wyatt to the right knee sustained around 1400 today while at work. The chemical is [employer]-100. Says it splashed onto her jeans which she did not remove at the time. A few hours later she noticed redness to the skin while in the bathroom. She then sprayed a neutralizer onto the skin. Endorses the skin is now dark in color and had blis tered in 3 areas around the knee. Reports the sites are tender to touch. Denies swelling, redness, drainage, decreased ROM, n/v/d/f/c. Denies any other skin injury. Unsure of last tetanus. Related Data Home Medications ?Medication ?Instructions ?Recorded ?Confirmed ?Last Taken ?Type travoprost 0.004 % eye drops 1 drp EACH EYE HS 05/17/22 06/03/24 Unknown History Allergies Allergy/AdvReac Type Severity Reaction Status Date / Time No Known Allergies Allergy Verified 02/11/25 19:27 Review of Systems Review of Systems: CONSTITUTIONAL: Denies body aches, fever, chills, or sweats. EYES: Denies visual changes, redness, or discharge. ENT: Denies rhinorrhea, congestion CARDIOVASCULAR: Denies chest pain, palpitations, or edema. RESPIRATORY: Denies cough or dyspnea. GASTROINTESTINAL: Denies abdominal pain, nausea, vomiting, or diarrhea. SKIN: per hpi MUSCULOSKELETAL: Denies back pain, joint pain, or myalgia. NEUROLOGIC: Denies headache, numbness, tingling, or weakness. [facility] Past Medical History Medical History Anxiety Depression Glaucoma STEVEN (obstructive sleep apnea) Surgical History Surgical History Hx laparoscopic cholecystectomy lap ximena w ioc on 05/18/24. Family History Family History Father Heart disease Mother Heart disease Depression Diabetes mellitus Sibling Depression Cerebrovascular accident Disorder of thyroid Social History Social History (Reviewed 06/03/24 @ 10:16 by Cindy Hughes [facility] Smoking packs per day: 1 Smoking cigarettes per day: 20.0 Years smoked: 25 Smoking pack-years: 25.00 Smoking status: Current every day smoker Tobacco type: cigarettes Alcohol intake: current Drinks per week: 2 Alcohol use details: once or twice or month wine or a mixed drink Substance use: never Substance use type: does not use Do You Feel Safe in your Home?: Yes Lack of Transportation: No Lack of Food: Never True Current Housing: I Have Housing Concerned About Future Housing: No Difficulty Paying Gas/Electric Bills: No Difficulty Paying for Meds: No Currently Unemployed: No Education: High School Diploma/GED Difficulty w/ Childcare or Family Care: No Living arrangements: with family Occupation/Education: occupation 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 Gender identity (if verbalized by the patient): Female Spiritual care concerns: No Agree to blood products: Yes Comments At time of signature, I have reviewed and agree with nursing past medical, surgical, social and family history unless otherwise noted. Please see nursing chart for further information. There is no relevant family history pertinent to the presenting complaint Exam Narrative: GENERAL: Well-appearing EYES: conjunctivae clear, and EOMI. ENT: Mucous membranes moist. Oropharynx without edema, erythema or lesions. NECK: Supple. No lymphadenopathy CHEST: Clear to auscultation. HEART: Regular rate and rhythm. SKIN: Warm, dry. Ruptured blisters with eschar to right knee x3. No surrounding induration or active drainage. No fluid filled blisters. CMS intact. lateral wound: 1.75 cm diameter superior to the knee wound: 4.5 cm x 2.5 cm medial wound: 1.5 cm diameter NEURO: Alert and oriented x3. Course Course Emergency Course: Patient is aware of diagnosis, understands and agrees to treatment plan. Anti cipatory guidance given. Patient agrees to follow-up as directed and is aware of reasons to seek care at the emergency department. Portions of this record may have been created with voice recognition software Level of Care: Express Care Visit Vital Signs Vital signs: Vital Signs Temperature 98.2 F 02/11/25 19:22 Pulse Rate 83 02/11/25 19:22 Respiratory Rate 20 02/11/25 19:22 Blood Pressure 173/88 H 02/11/25 19:22 Pulse Oximetry 98 02/11/25 19:22 Oxygen Delivery Room Air 02/11/25 19:22 Temperature 98.2 F 02/11/25 19:22 Pulse Rate 83 02/11/25 19:22 Respiratory Rate 20 02/11/25 19:22 Blood Pressure 173/88 H 02/11/25 19:22 Pulse Oximetry 98 02/11/25 19:22 Oxygen Delivery Room Air 02/11/25 19:22 Reviewed Medical Decision Making MDM Narrative Medical decision making narrative: Discussed physical exam findings, wounds c/w chemical wyatt as described. tetanus updated. Wounds cleansed with skintegrity. Silvadene cream and nonstick dressing applied with paper tape. Rx abx. Pt will continue silvadene cream. Advised supportive measures and signs/symptoms to go to the ER at length with pt. Pt is appropriate for outpt treatment and f/u with pcp and wound care, advised to contact in the morning. v/u. Differential Diagnosis Differential Diagnosis: abrasion, avulsion, chemical burn, cellulitis Vital Signs Vital Signs: Vital Signs Temperature 98.2 F 02/11/25 19:22 Pulse Rate 83 02/11/25 19:22 Respiratory Rate 20 02/11/25 19:22 Blood Pressure 173/88 H 02/11/25 19:22 Pulse Oximetry 98 02/11/25 19:22 Oxygen Delivery Room Air 02/11/25 19:22 Temperature 98.2 F 02/11/25 19:22 Pulse Rate 83 02/11/25 19:22 Respiratory Rate 20 02/11/25 19:22 Blood Pressure 173/88 H 02/11/25 19:22 Pulse Oximetry 98 02/11/25 19:22 Oxygen Delivery Room Air 02/11/25 19:22 Discharge Plan Discharge Clinical Impression: Chemical burn of skin Patient Disposition: Home, Self-Care Condition: Stable Instructions: Antibiotic Form, Chemical Skin Burn (ED) Additional Instructions: ---Clean the burn daily Wash your hands before cleaning a burn. Do not touch the burn with your hands, because open blisters can easily be infected. Do not break the blisters. Gently wash the burn area every day with a mild soap and water. Some of the burned skin might come off with washing. Pat the area dry with a clean cloth or gauze. *Do not put pain-relief skin sprays on wyatt, because this traps the heat inside the burn. Apply ointment to keep the burn moist; Apply the antibiotic cream or ointment to a nonstick dressing over the burn. Do not use antibiotic ointment for more than one week ---Bandage the burn. Dressing change daily - wash with gentle soap and water or Wound spray, silvadene cream, nonadhesive, gauze. Use gauze or tape to keep the dressing in place. Do not tape a bandage so that it circles around the leg. This can cause swelling. Apply a clean bandage whenever it gets wet or soiled to prevent infection If a bandage is stuck to the burn, soak it in warm water to make the bandage easier to remove. Tylenol 1000mg every 8 hours as needed, alternate ibuprofen 800 mg every 8 hours as needed. Hydrocodone is for severe pain. tetanus updated today Follow up with your primary care provider , call tomorrow to schedule appointment recommend follow-up with wound care/wound management Go to the ER for worsening symptoms or concerns Patient Language: French Prescriptions: New cephalexin 500 mg capsule 500 mg PO Q6H 5 Days Qty: 20 0RF No Action travoprost 0.004 % drops 1 drp EACH EYE HS escitalopram oxalate 10 mg tablet See Rx Instructions .ROUTE .COMPLEX Qty: 90 3RF Dose Instruction: Take 1 tablet by mouth once daily Rx Instructions: Take 1 tablet by mouth once daily Follow-up/Referrals: Brittney Rodriguez APRN [Primary Care Provider] - Time of Disposition: 20:21
[2025-02-11] MEDS: TETANUS,DIPHTHERIA,AC PERTUSSIS ADULT (0.5 ML) BOOSTRIX IM (20:01)
[2025-02-11] MEDS: SILVER SULFADIAZINE 1% CR 50 GM JAR (*BKC) 1 APPLIC TOPICAL (20:11)
== END 2025-02-11 20:28 | disposition home or self-care (01) ==
PROVIDERS: Emergency Provider Nurse Practitioner Family; PCP Nurse Practitioner Adult Health
DX: T65.891A Toxic effect of other specified substances, accidental (unintentional), initial encounter (principal); T24.621A Corrosion of second degree of right knee, initial encounter; Y99.0 Civilian activity done for income or pay; Z23 Encounter for immunization; H40.9 Unspecified glaucoma; F17.210 Nicotine dependence, cigarettes, uncomplicated
CPT/HCPCS: 16020; 90471; 90715; 99213; A9270; G0463

== ENCOUNTER 2025-08-18 14:12 | Outpatient (CLI) | payer OTHER, SELFPAY ==
--- NOTE | ~2025-08-18 | XR_ITS ---
XR abdomen/kub 1V 08/18/2025 14:42 INDICATION: Abdomen pain TECHNIQUE: KUB COMPARISON: None FINDINGS: Bowel gas pattern is normal. There is no evidence of free air, mass, organomegaly, ascites or obstruction. No abnormal calculi are seen. The bones appear intact. There are cholecystectomy clips. IMPRESSION: 1: No acute abdominal abnormality identified. Reviewed, dictated and finalized at location O.
--- OUTSIDE RECORDS SUMMARY | 2025-08-18 14:27 | XMS_ITS | Clinical Summary ---
Author Organization [facility] Address [address] [place] [phone] Phone Care Team Providers Care Building And Grounds Supervisor Name Role Phone Unavailable Primary Care Provider Unavailabl e Allergies No known active allergies Medications escitalopram oxalate (LEXAPRO) 10 mg tablet Take 10 mg by mouth daily. Active cephALEXin (KEFLEX) 500 mg capsule TAKE 1 CAPSULE BY MOUTH EVERY 6 HOURS FOR 5 DAYS 5 Active travoprost (TRAVATAN Z) 0.004 % solution by Ophthalmic route. Active silver sulfADIAZINE (SILVADENE) 1 % Cream Apply to affected area 2 times daily. 400 Gram 5 Active gabapentin (NEURONTIN) 100 mg capsule Take 2 Capsules (200 mg) by mouth daily at bedtime. 60 Capsule 1 5 Active Active Problems No known active problems Encounters Date Type Department Care Team Description 07/01/2025 External Device Data [facility]STRACTION Provider, Abstract 06/11/2025 External Device Data [facility] Provider, Abstract 06/11/2025 External Device Data [facility] Provider, Abstract from Last 3 Months Social History Tobacco Use Types Packs/Day Years Used Date Smoking Tobacco: Every Day Cigarettes Smokeless Tobacco: Never Tobacco Cessation:Ready to Q uit: Not Asked; Counseling Given: Not Answered Comments Unknown Sex and Gender Information Value Date Recorded Sex Assigned at Not on file Legal Sex Female 12:55 AM CDT Gender Identity Not on file Sexual Orientation Not on file Last Filed Vital Signs Vital Sign Reading Time Taken Comments Blood Pressure 152/84 05/13/2025 9:06 AM CDT Pulse - - Temperature - - Respiratory Rate - - Oxygen Saturation - - Inhaled Oxygen Concentration - - Weight 95.3 kg (210 lb) 05/13/2025 9:06 AM CDT Height 170.2 cm (5' 7) 05/13/2025 9:06 AM CDT Body Mass Index 32.89 05/13/2025 9:06 AM CDT Plan of Treatment Health Maintenance Due Date Last Done Comments Pre-Diabetes and Diabetes Screening 1980 HEPATITIS B VACCINES (1 of 3 - 19+ 3-dose series) 1999 HPV/Cotest (21-29) 2001 HPV VACCINES (1 - 3-dose SCDM series) 2007 CERVICAL CANCER SCREENING 2010 HPV/Cotest (30-65) 2010 PAP SMEAR 2010 BREAST CANCER SCREENING 2022 2021, 03/06 DTAP/TDAP/TD VACCINES (2 - Td or Tdap) 04/23/2024 COLORECTAL SCREENING 2025 Colorectal Cancer Screening 2025 FIT-DNA Q 3 years 2025 FIT/FOBT Q 1 year 2025 Flex Sig/CT Colonography Q 5 years 2025 INFLUENZA VACCINE (#1) 2025 Insurance WORKERS COMP
--- OUTSIDE RECORDS SUMMARY | 2025-08-18 14:27 | XMS_ITS | Clinical Summary ---
Author Organization [facility] Address [address] [place] [address] Phone Care Team Providers Care Tool Crib Supervisor Name Role Phone Shashi Weeks MD Primary Care Provider Allergies No known active allergies Medications Travoprost [...] Comments Blood Pressure 112/78 01/15/2019 9:40 AM REHABILITATION SERVICES AIDE Pulse 63 01/15/2019 9:40 AM REHABILITATION SERVICES AIDE Temperature 36.1 C (97 F) 01/15/2019 9:40 AM REHABILITATION SERVICES AIDE Respiratory Rate 16 01/15/2019 9:40 AM REHABILITATION SERVICES AIDE Oxygen Saturation 97% 01/15/2019 9:40 AM REHABILITATION SERVICES AIDE Inhaled Oxygen Concentration - - Weight 113.4 kg (250 lb) 01/11/2019 9:00 AM REHABILITATION SERVICES AIDE Height 170.2 cm (5' 7) 01/11/2019 9:00 AM REHABILITATION SERVICES AIDE Body Mass Index 39.16 01/11/2019 9:00 AM REHABILITATION SERVICES AIDE Plan of Treatment Health Maintenance Due Date Last Done Comments Hepatitis C Virus (HCV) Screening 1980 TdaP Immunization 1980 Hepatitis B Immunization (1 of 3 - 19+ 3-dose series) 1999 Pap Smear 2001 Human Papillomavirus (HPV) Immunization (1 - 3-dose SCDM series) 2007 Cervical Cancer Screening (CCS) 2010 HPV/Cotest 2010 Cologuard 2025 Colonoscopy 2025 Colorectal Cancer Screening 2025 Immunochemical Fecal Occult Blood 2025 Influenza Immunization (#1) 2025 SARS-COV-2 Immunization ( season) 2025 11/23/2021, 11/02/2021 Respiratory Syncytial Virus (RSV) Immunization [...] patient's age to complete this topic Insurance [place] [id number] [facility] GENERIC [address] GENERIC Care Teams Tool Crib Supervisor Relationship Specialty Start Date End Date Shashi Weeks MD [address] [place] [address] [place] [address] PCP - General Family Medicine 02/15/16
--- OUTSIDE RECORDS SUMMARY | 2025-08-18 14:27 | XMS_ITS | Clinical Summary ---
Author Organization [facility] Address [address] [place] [address] Care Team Providers Care Leasing Coordinator Name Role Phone Samina Renee MD, Zac Garg Unavailable [phone] No, Physician Primary Care Provider [phone] Allergies No known active allergies Medications travoprost (TRAVATAN Z) 0.004 % drops Administer into both eyes. Active turmeric root extract 500 mg capsule Take by mouth Active varenicline (CHANTIX) 1 mg tabletIndicatio ns:Smoking Cessation Take 1 tablet (1 mg total) by mouth 2 (two) times a day Take with full glass of water. 60 tablet 4 1 Active vit C-s.ngo-klever ry-grape sd 69-787-41-75-20 mg capsule Take by mouth Activ e flaxseed oil 1,000 mg capsule Take 2,000 mg by mouth Active garlic extract 600 mg tablet Take by mouth Ac tive omega 5-pha-drk-fish oil (Fish OiL) 100-160-1,000 mg capsule Take [...] recommended. Assessment & Plan (01/05/2021 8:49 AM AIRCRAFT ENGINE DISMANTLER): Advised patient to quit smoking. 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 Patient congratulated and encouraged to continue Chantix. Assessment & Plan (01/05/2021 8:49 AM AIRCRAFT ENGINE DISMANTLER): Advised patient to quit smoking. Chantix will be started. Pelvic floor dysfunction in female 10/15/2018 Resolved Problems Problem Noted Date Diagnosed Date Resolved Date Chest pain 01/05/2021 03/25/2021 Assessment & Plan (01/05/2021 8:48 AM AIRCRAFT ENGINE DISMANTLER): No acute CP today, CXR ordered, will [...] Hx Other Medical Tubal 2003; Com ments: SHEFALI 12/01/2014 - Hx Other Medical Knee 2012; [...] Used Date Smoking Tobacco: Former Cigarettes 1 30.7 S tarted: 11/27/1994 Smokeless Tobacco: Never Tobacco Cessation:Counseling Given: Not Answered Alcohol Use Standard Drinks/Week Comments No 0 [...] staff should administer the PHQ-9) 0 03/25/2021 Personal Safety Answer Date Recorded Have you ever been in or are you currently in a harmful physical or emotional relationship or is someone making you feel afraid or unsafe? Denies 02/13/2025 Comments No Sex and Gender Information Value Date Recorded Sex Assigned at Not on file Legal Sex Female 6:11 AM AIRCRAFT ENGINE DISMANTLER Gender Identity Not on file Sexual Orientation [...] Sign Reading Time Taken Comments Blood Pressure 141/98 02/14/2025 1:51 AM CDT Pulse 74 02/14/2025 1:51 AM CDT Temperature 37.2 C (99 F) 02/13/2025 10:05 PM CDT Respiratory Rate 16 02/14/2025 1:51 AM CDT Oxygen Saturation 100% 02/14/2025 1:51 AM CDT Inhaled Oxygen Concentration - - Weight 95.3 kg (210 lb) 02/13/2025 10:05 PM CDT Height 170.2 cm (5' 7) 02/13/2025 10:05 PM CDT Body Mass Index 32.89 02/13/2025 10:05 PM CDT Plan of Treatment Health Maintenance Due Date Last Done Comments Cervical Cancer Screening 1980 Colon Cancer Screening-Colonoscopy 1980 Varicella Vaccines (1 of 2 - 13+ 2-dose series) 1993 Hepatitis B Screening 1998 HPV Vaccines (1 - 3-dose SCD M series) 2007 Regular Well Visit/Exam 18-64 01/05/2022 01/05/2021 Breast Cancer Screening-Mammogram 2022 2021 Depression Screening 03/25/2022 03/25/2021, 01/05/2021 DTaP/Tdap/Td Vaccine (2 - Td or Tdap) 04/23/2024 04/23/2014 Covid-19 Vaccine (3 - 2024-2 6 season) 2025 11/23/2021, 11/02/2021 Influenza Vaccine (#1) 2025 Hepatitis C Screening Completed 01/05/2021 Pneumococcal vaccine <65 Aged Out No longer eligible based on patient's age to complete this topic Procedures Procedure Name Priority Date/Time Associated Diagnosis Comments SCREENING MAMMOGRAM BILATERAL W ALEX Schedule Routine, Read Routine (OP Routine) 2021 11:30 AM CDT Screening mammogram for high-risk patient HEPATITIS C ANTIBODY Routine 01/05/2021 9:21 AM AIRCRAFT ENGINE DISMANTLER Encounter for hepatitis C screening test for [...] * Hepatitis C antibody (01/05/2021 9:21 AM AIRCRAFT ENGINE DISMANTLER) Hep C Ab Nonreactive Nonreactive [employer] [...] last revised on 2020. Testing performed by: [facility], [address] [place] [address], [place]., [address] Blood specimen (specimen) 01/05/2021 9:21 AM AIRCRAFT ENGINE DISMANTLER 01/05/2021 2:38 PM AIRCRAFT ENGINE DISMANTLER Carlito Jane DO LAB MICROBIOLOGY - GENERAL ORDERABLES Final Result [employer] [facility] ([facility]) 1 [facility] Department [place] [address] from Last 3 Months or Most Recently Relevant to Health Maintenance Insurance Care Teams Leasing Coordinator Relationship Specialty Start Date End Date No, Physician PCP - General 05/05/22 Zac Haas Jr., MD [address] [place] [address] Surgeon Orthopedic Surgery 01/05/21
[2025-08-18 19:04] LABS: Add Urine Microscopic? NO; Appearance Urine Clear (Clear); Glucose Urine UA Negative (Negative); Leukocyte Esterase Ur Negative LEU/UL (Negative); Nitrate Urine Negative (Negative); Specific Grav Ur 1.020 (1.001-1.035)
== END 2025-08-18 14:13 | disposition home or self-care (01) ==
PROVIDERS: PCP Nurse Practitioner Adult Health; Visit Provider Nurse Practitioner Adult Health
DX: R39.9 Unspecified symptoms and signs involving the genitourinary system (principal); R11.0 Nausea
CPT/HCPCS: 74018; 81003; 87086

== ENCOUNTER 2025-08-21 10:17 | Outpatient (CLI) | payer OTHER, SELFPAY ==
--- NOTE | ~2025-08-21 | XR_ITS ---
EXAMINATION: XR chest 2V 08/21/2025 12:53 INDICATION: Left-sided lung pain PROCEDURE: 2 view chest COMPARISON: 05/17/2022 FINDINGS: The lungs are clear. The cardiomediastinal silhouette is within normal limits. There are no pleural effusions. There is no pneumothorax suspected. IMPRESSION: 1: NO ACUTE CARDIOPULMONARY DISEASE. Reviewed, dictated and finalized at location O.
--- OUTSIDE RECORDS SUMMARY | 2025-08-21 11:24 | XMS_ITS | Clinical Summary ---
Author Organization [facility] Address [address] [place] [phone] Phone Care Team Providers Care Towel Cabinet Repairer Name Role Phone Unavailable Primary Care Provider [...]
--- OUTSIDE RECORDS SUMMARY | 2025-08-21 11:24 | XMS_ITS | Clinical Summary ---
Author Organization [facility] Address [address] [place] [address] Care Team Providers Care Structures Mechanic Name Role Phone Samina Renee MD, Zac Garg Unavailable [phone] No, Physician Primary Care Provider [phone] Allergies No known active allergies Medications travoprost (TRAVATAN Z) 0.004 % drops Administer into both eyes. Active turmeric root extract 500 mg capsule Take by mouth Active varenicline (CHANTIX) 1 mg tabletIndicatio ns:Smoking Cessation Take 1 tablet (1 mg total) by mouth 2 (two) times a day Take with full glass of water. 60 tablet 4 1 Active vit C-s.ngo-klever ry-grape sd [id number] mg capsule Take by mouth Activ e flaxseed oil 1,000 mg capsule Take 2,000 mg by mouth Active garlic extract 600 mg tablet Take by mouth Ac tive omega 0-vra-zar-fish oil (Fish OiL) 100-160-1,000 mg capsule Take [...] recommended. Assessment & Plan (01/05/2021 8:49 AM SLAB LIFTING ENGINEER): Advised patient to quit smoking. 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 Patient congratulated and encouraged to continue Chantix. Assessment & Plan (01/05/2021 8:49 AM SLAB LIFTING ENGINEER): Advised patient to quit smoking. Chantix will be started. Pelvic floor dysfunction in female 10/15/2018 Resolved Problems Problem Noted Date Diagnosed Date Resolved Date Chest pain 01/05/2021 03/25/2021 Assessment & Plan (01/05/2021 8:48 AM SLAB LIFTING ENGINEER): No acute CP today, CXR ordered, will [...] on file Legal Sex Female 6:11 AM SLAB LIFTING ENGINEER Gender Identity Not on file Sexual Orientation [...] HEPATITIS C ANTIBODY Routine 01/05/2021 9:21 AM SLAB LIFTING ENGINEER Encounter for hepatitis C screening test for [...] * Hepatitis C antibody (01/05/2021 9:21 AM SLAB LIFTING ENGINEER) Hep C Ab Nonreactive Nonreactive [employer] [...] last revised on 2020. Testing performed by: [facility], [address] [place] [address], [place]., [address] Blood specimen (specimen) 01/05/2021 9:21 AM SLAB LIFTING ENGINEER 01/05/2021 2:38 PM SLAB LIFTING ENGINEER Carlito Jane DO LAB MICROBIOLOGY - GENERAL ORDERABLES Final Result [facility] [facility] ([facility] 1 [facility] Department [place] [address] from Last 3 Months or Most Recently Relevant to Health Maintenance Insurance Care Teams Structures Mechanic Relationship Specialty Start Date End Date No, Physician PCP - General 05/05/22 Zac Haas Jr., MD [address] [place] [address] Surgeon Orthopedic Surgery 01/05/21
--- OUTSIDE RECORDS SUMMARY | 2025-08-21 11:24 | XMS_ITS | Clinical Summary ---
Author Organization [facility] Address [address] [place] [address] Phone Care Team Providers Care Wax Machine Operator Name Role Phone Shashi Weeks MD Primary Care Provider [phone] Allergies No known active allergies Medications Travoprost [...] Comments Blood Pressure 112/78 01/15/2019 9:40 AM CABIN FURNISHINGS INSTALLER Pulse 63 01/15/2019 9:40 AM CABIN FURNISHINGS INSTALLER Temperature 36.1 C (97 F) 01/15/2019 9:40 AM CABIN FURNISHINGS INSTALLER Respiratory Rate 16 01/15/2019 9:40 AM CABIN FURNISHINGS INSTALLER Oxygen Saturation 97% 01/15/2019 9:40 AM CABIN FURNISHINGS INSTALLER Inhaled Oxygen Concentration - - Weight 113.4 kg (250 lb) 01/11/2019 9:00 AM CABIN FURNISHINGS INSTALLER Height 170.2 cm (5' 7) 01/11/2019 9:00 AM CABIN FURNISHINGS INSTALLER Body Mass Index 39.16 01/11/2019 9:00 AM CABIN FURNISHINGS INSTALLER Plan of Treatment Health Maintenance Due Date [...] patient's age to complete this topic Insurance [place] [id number] [facility] GENERIC [address] GENERIC Care Teams Wax Machine Operator Relationship Specialty Start Date End Date Shashi Weeks MD [address] [place] [address] [place] [address] PCP - General Family Medicine 02/15/16
[2025-08-21 18:29] LABS: Hematocrit 48.7 % (37.0-47.0); Hemoglobin 16.1 g/dL (12.0-15.0); Mean Corpuscular HGB Conc 33.1 g/dl (32-36); Mean Corpuscular Hemoglobin 32.1 pg (26-34); Mean Corpuscular Volume 97.2 fl (80-100); Platelet Count Result 265 k/mm3 (150-375); Red Blood Count 5.01 M/mm3 (4.2-5.4); White Blood Count 7.4 K/mm3 (4.5-10.0)
[2025-08-21 18:41] LABS: Alanine Aminotransferase 38 U/L (6-35); Albumin Level 4.2 g/dL (3.5-5.1); Alkaline Phosphatase 64 U/L (38-126); Anion Gap 6 mmol/L (4-12); Aspartate Amino Transferase 94 U/L (14-36); Bilirubin,Total 0.5 mg/dL (0.2-1.3); Blood Urea Nitrogen 16 mg/dL (7-17); Calcium 9.0 mg/dL (8.4-10.2); Carbon Dioxide 27 mmol/L (22-30); Chloride 104 mmol/L (98-107); Cholesterol 226 mg/dL (0-200); Estimated Glomerular Filt Rate > 60; Glucose 84 mg/dL (65-110); HDL Direct 49 mg/dL; Potassium 5.0 mmol/L (3.4-5.0); Sodium 137 mmol/L (137-145); Total Protein 7.5 g/dL (6.3-8.2); Triglycerides 125 mg/dL (<150)
[2025-08-21 18:53] LABS: Hemoglobin A1C 5.1 % (<5.7)
[2025-08-21 19:17] LABS: Thyroid Stimulating Hormone 2.170 uIU/mL (0.465-4.680)
== END 2025-08-21 10:18 | disposition home or self-care (01) ==
PROVIDERS: PCP Nurse Practitioner Adult Health; Visit Provider Nurse Practitioner Adult Health
DX: E66.9 Obesity, unspecified (principal); E78.5 Hyperlipidemia, unspecified; F17.200 Nicotine dependence, unspecified, uncomplicated
CPT/HCPCS: 36415; 71046; 80053; 80061; 83036; 84443; 85027

== ENCOUNTER 2025-09-15 10:25 | Outpatient (CLI) | payer OTHER, SELFPAY ==
--- OUTSIDE RECORDS SUMMARY | 2025-09-15 12:14 | XMS_ITS | Clinical Summary ---
Author Organization [facility] Address [address] [place] [address] Care Team Providers Care Snailer Name Role Phone Samina Renee MD, Zac Garg Unavailable [phone] No, Physician Primary Care Provider [phone] Allergies No known active allergies Medications travoprost (TRAVATAN Z) 0.004 % drops Administer into both eyes. Active turmeric root extract 500 mg capsule Take by mouth Active varenicline (CHANTIX) 1 mg tabletIndicatio ns:Smoking Cessation Take 1 tablet (1 mg total) by mouth 2 (two) times a day Take with full glass of water. 60 tablet 4 1 Active vit C-s.ngo-klever ry-grape sd 62-123-37-75-20 mg capsule Take by mouth Activ e flaxseed oil 1,000 mg capsule Take 2,000 mg by mouth Active garlic extract 600 mg tablet Take by mouth Ac tive omega 1-rrq-svx-fish oil (Fish OiL) 100-160-1,000 mg capsule Take [...] recommended. Assessment & Plan (01/05/2021 8:49 AM HOTBED OPERATOR): Advised patient to quit smoking. 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 Patient congratulated and encouraged to continue Chantix. Assessment & Plan (01/05/2021 8:49 AM HOTBED OPERATOR): Advised patient to quit smoking. Chantix will be started. Pelvic floor dysfunction in female 10/15/2018 Resolved Problems Problem Noted Date Diagnosed Date Resolved Date Chest pain 01/05/2021 03/25/2021 Assessment & Plan (01/05/2021 8:48 AM HOTBED OPERATOR): No acute CP today, CXR ordered, will [...] Used Date Smoking Tobacco: Former Cigarettes 1 30.8 S tarted: 11/27/1994 Smokeless Tobacco: Never Tobacco [...] on file Legal Sex Female 6:11 AM HOTBED OPERATOR Gender Identity Not on file Sexual Orientation [...] HEPATITIS C ANTIBODY Routine 01/05/2021 9:21 AM HOTBED OPERATOR Encounter for hepatitis C screening test for [...] * Hepatitis C antibody (01/05/2021 9:21 AM HOTBED OPERATOR) Hep C Ab Nonreactive Nonreactive [employer] [...] last revised on 2020. Testing performed by: [facility], [address] [place] [address], [place]., [address] Blood specimen (specimen) 01/05/2021 9:21 AM HOTBED OPERATOR 01/05/2021 2:38 PM HOTBED OPERATOR Carlito Jane DO LAB MICROBIOLOGY - GENERAL ORDERABLES Final Result [employer] ([facility]) 1 [facility] Department [place] [address] from Last 3 Months or Most Recently Relevant to Health Maintenance Insurance Care Teams Snailer Relationship Specialty Start Date End Date No, Physician PCP - General 05/05/22 Zac Haas Jr., MD [address] [place] [address] Surgeon Orthopedic Surgery 01/05/21
--- OUTSIDE RECORDS SUMMARY | 2025-09-15 12:14 | XMS_ITS | Clinical Summary ---
Author Organization [facility] Address [address] [place] [address] Phone Care Team Providers Care Warehouse Shipping Receiving Clerk Name Role Phone Shashi Weeks MD Primary [...] Comments Blood Pressure 112/78 01/15/2019 9:40 AM LAP WINDING MACHINE OPERATOR Pulse 63 01/15/2019 9:40 AM LAP WINDING MACHINE OPERATOR Temperature 36.1 C (97 F) 01/15/2019 9:40 AM LAP WINDING MACHINE OPERATOR Respiratory Rate 16 01/15/2019 9:40 AM LAP WINDING MACHINE OPERATOR Oxygen Saturation 97% 01/15/2019 9:40 AM LAP WINDING MACHINE OPERATOR Inhaled Oxygen Concentration - - Weight 113.4 kg (250 lb) 01/11/2019 9:00 AM LAP WINDING MACHINE OPERATOR Height 170.2 cm (5' 7) 01/11/2019 9:00 AM LAP WINDING MACHINE OPERATOR Body Mass Index 39.16 01/11/2019 9:00 AM LAP WINDING MACHINE OPERATOR Plan of Treatment Health Maintenance Due Date [...] patient's age to complete this topic Insurance [place] [id number] [facility] GENERIC [address] GENERIC Care Teams Warehouse Shipping Receiving Clerk Relationship Specialty Start Date End Date Shashi Weeks MD [address] [place] [address] [place] [address] PCP - General Family Medicine 02/15/16
[2025-09-15 19:31] LABS: Alanine Aminotransferase 29 U/L (6-35); Albumin Level 4.1 g/dL (3.5-5.1); Alkaline Phosphatase 66 U/L (38-126); Aspartate Amino Transferase 69 U/L (14-36); Bilirubin,Total 0.5 mg/dL (0.2-1.3); Total Protein 7.6 g/dL (6.3-8.2)
== END 2025-09-15 10:26 | disposition home or self-care (01) ==
LOC: ANHBWCLAB 10:27
PROVIDERS: PCP Nurse Practitioner Adult Health; Visit Provider Nurse Practitioner Adult Health
DX: R74.8 Abnormal levels of other serum enzymes (principal)
CPT/HCPCS: 36415; 80076

== ENCOUNTER 2025-09-24 14:20 | Outpatient (CLI) | payer OTHER, SELFPAY ==
--- NOTE | ~2025-09-24 | XR_ITS ---
XR lumbar spine 2-3V Indication: M54.9 - Dorsalgia, unspecified Comparison: None Findings: The vertebral heights are intact. No fracture or subluxation. The disc heights are intact. Soft tissues unremarkable Impression: No acute abnormality. Reviewed, dictated and finalized at location P. Impression: No acute abnormality.
--- OUTSIDE RECORDS SUMMARY | 2025-09-24 16:15 | XMS_ITS | Clinical Summary ---
Author Organization [facility] Address [address] [place] [address] Care Team Providers Care Chinese Medicine Practitioner Name Role Phone Samina Renee MD, Zac Garg Unavailable [phone] No, Physician Primary Care Provider [phone] Allergies No known active allergies Medications travoprost (TRAVATAN Z) 0.004 % drops Administer into both eyes. Active turmeric root extract 500 mg capsule Take by mouth Active varenicline (CHANTIX) 1 mg tabletIndicatio ns:Smoking Cessation Take 1 tablet (1 mg total) by mouth 2 (two) times a day Take with full glass of water. 60 tablet 4 1 Active vit C-s.ngo-klever ry-grape sd 72-681-21-75-20 mg capsule Take by mouth Activ e flaxseed oil 1,000 mg capsule Take 2,000 mg by mouth Active garlic extract 600 mg tablet Take by mouth Ac tive omega 3-cor-ldg-fish oil (Fish OiL) 100-160-1,000 mg capsule Take [...] recommended. Assessment & Plan (01/05/2021 8:49 AM PRINCIPAL SYSTEMS ENGINEER): Advised patient to quit smoking. 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 Patient congratulated and encouraged to continue Chantix. Assessment & Plan (01/05/2021 8:49 AM PRINCIPAL SYSTEMS ENGINEER): Advised patient to quit smoking. Chantix will be started. Pelvic floor dysfunction in female 10/15/2018 Resolved Problems Problem Noted Date Diagnosed Date Resolved Date Chest pain 01/05/2021 03/25/2021 Assessment & Plan (01/05/2021 8:48 AM PRINCIPAL SYSTEMS ENGINEER): No acute CP today, CXR ordered, [...] on file Legal Sex Female 6:11 AM PRINCIPAL SYSTEMS ENGINEER Gender Identity Not on file Sexual [...] HEPATITIS C ANTIBODY Routine 01/05/2021 9:21 AM PRINCIPAL SYSTEMS ENGINEER Encounter for hepatitis C screening test [...] * Hepatitis C antibody (01/05/2021 9:21 AM PRINCIPAL SYSTEMS ENGINEER) Hep C Ab Nonreactive Nonreactive ODETTE [...] revised on 2020. Testing performed by: [facility], [address] [place] [address], [place]., [address] Blood specimen (specimen) 01/05/2021 9:21 AM PRINCIPAL SYSTEMS ENGINEER 01/05/2021 2:38 PM PRINCIPAL SYSTEMS ENGINEER Carlito Jane DO LAB MICROBIOLOGY - GENERAL ORDERABLES Final Result [employer] ([facility]) 1 [facility] Department [place] [address] from Last 3 Months or Most Recently Relevant to Health Maintenance Insurance Care Teams Chinese Medicine Practitioner Relationship Specialty Start Date End Date No, Physician PCP - General 05/05/22 Zac Haas Jr., MD [address] [place] [address] Surgeon Orthopedic Surgery 01/05/21
--- OUTSIDE RECORDS SUMMARY | 2025-09-24 16:15 | XMS_ITS | Clinical Summary ---
Author Organization [facility] Address [address] [place] [phone] Phone Care Team Providers Care Business Continuity Consultant Name Role Phone Unavailable Primary Care Provider [...] Encounters Date Type Department Care Team Description 09/16/2025 External Device Data [facility] ABSTRACTION Provider, Abstract 07/01/2025 External Device Data [facility]STRACTION Provider, [...]
--- OUTSIDE RECORDS SUMMARY | 2025-09-24 16:15 | XMS_ITS | Clinical Summary ---
Author Organization [facility] Address [address] [place] [address] Phone Care Team Providers Care Fur Glosser Name Role Phone Shashi Weeks MD Primary Care Provider [phone] Allergies No known active allergies Medications Travoprost [...] Comments Blood Pressure 112/78 01/15/2019 9:40 AM PLANT PRODUCTION MANAGER Pulse 63 01/15/2019 9:40 AM PLANT PRODUCTION MANAGER Temperature 36.1 C (97 F) 01/15/2019 9:40 AM PLANT PRODUCTION MANAGER Respiratory Rate 16 01/15/2019 9:40 AM PLANT PRODUCTION MANAGER Oxygen Saturation 97% 01/15/2019 9:40 AM PLANT PRODUCTION MANAGER Inhaled Oxygen Concentration - - Weight 113.4 kg (250 lb) 01/11/2019 9:00 AM PLANT PRODUCTION MANAGER Height 170.2 cm (5' 7) 01/11/2019 9:00 AM PLANT PRODUCTION MANAGER Body Mass Index 39.16 01/11/2019 9:00 AM PLANT PRODUCTION MANAGER Plan of Treatment Health Maintenance Due Date [...] patient's age to complete this topic Insurance [place] [id number] [facility] GENERIC [address] GENERIC Care Teams Fur Glosser Relationship Specialty Start Date End Date Shashi Weeks MD [address] [place] [address] [place] [address] PCP - General Family Medicine 02/15/16
== END 2025-09-24 14:21 | disposition home or self-care (01) ==
LOC: ANHLAB 14:22 → ANHBWCIMG 14:22
PROVIDERS: PCP Nurse Practitioner Adult Health; Visit Provider Nurse Practitioner Adult Health
DX: M54.9 Dorsalgia, unspecified (principal)
CPT/HCPCS: 72100